=== PATIENT | male | born 1935 | race Caucasian/White ===

== ENCOUNTER → 2017-05-31 14:41 | Outpatient (CLI) | payer MEDICARE, SELFPAY ==
[2017-05-31 16:19] LABS: Absolute Lymphocyte Count 1.67 X10^3/ul (0.83-4.51); Absolute Neutrophil Count 5.7 X10^3/uL (2.0-7.7); Basophil# 0.05 X10^3/uL; Basophil% 0.6 % (0-1); Eosinophil# 0.16 X10^3/uL; Eosinophils% 1.9 % (0-5); Hematocrit 38.4 % (40-54); Hemoglobin 11.9 g/dl (13.0-16.5); Lymphocyte # 1.67 X10^3/ul (4.0); Lymphocyte % 20.2 % (19-41); Mean Corpuscular Hgb 29.6 pg (27.0-32.0); Mean Corpuscular Volume 95.5 fL (80-94); Mean Platelet Vol. 9.3 fl (6.2-12.0); Monocyte% 8.5 % (0-10); Neutrophil # 5.69 X10^3/uL (2.7-7.7); Neutrophil % 68.7 % (47-70); Platelet Count 222 K/mm3 (150-450); RBC Distribution Width CV 14.6 % (11.6-14.6); RBC Distribution Width SD 48.4 fl (35.1-43.9); Red Blood Count 4.02 M/mm3 (4.6-6.2); White Blood Count 8.3 K/mm3 (4.4-11.0)
[2017-05-31 16:23] LABS: POSITIVE COUNT NO; POSITIVE DIFFERENTIAL NO; POSITIVE MORPHOLOGY NO
[2017-05-31 16:38] LABS: ALB/GLOB Ratio 1.2 RATIO (0.9-2.4); AST(SGOT) 19 U/L (15-37); Alanine Aminotransfer ALT/SGPT 13 U/L (16-61); Alkaline Phosphatase 56 U/L (45-117); Anion Gap 11 (5-15); BUN 17 mg/dL (7-18); BUN/Creat Ratio 20.2 RATIO (10-20); Calcium,Total 9.1 mg/dL (8.5-10.1); Chloride 106 mmol/L (98-107); Creatinine, Serum 0.84 mg/dL (0.70-1.30); EST Glomerular Filtration Rate 93 mL/min (>60); Est Glom Filt Rate - Afr Amer 113 mL/min (>60); Globulin 3.3 g/dL (2.2-4.2); Glucose 133 mg/dL (74-106); Potassium 4.6 mmol/L (3.5-5.1); Protein, Total 7.3 g/dL (6.4-8.2); Sodium Level 144 mmol/L (136-145)
== END ==
PROVIDERS: Family Provider Family Medicine Geriatric Medicine; PCP Family Medicine Geriatric Medicine; Visit Provider Family Medicine Geriatric Medicine
DX: R25.9 Unspecified abnormal involuntary movements (principal)
CPT/HCPCS: 36415; 80053; 85025

== ENCOUNTER → 2017-06-02 06:29 | Outpatient (CLI) | payer MEDICARE, SELFPAY ==
--- NOTE | 2017-06-02 06:36 | MRI_ITS ---
STUDY: MRI BRAIN WITHOUT CONTRAST REASON FOR EXAM: Male, 81 years old. dementia,gait difficulty, weakness, shaking. TECHNIQUE: Standardized multiplanar fat and water weighted pulse sequences were obtained. COMPARISON: June 27, 2015 FINDINGS: There is mild cerebral atrophy with widening of the extra-axial spaces and ventricular dilatation. There are a limited number of small white matter hyperintensities, distributed throughout the deep white matter tracts of the cerebral hemispheres, consistent with mild chronic white matter ischemic changes. Normal bilateral basal ganglia. Normal thalami. There is no extra-axial fluid accumulation. Normal flow voids within the major intracranial circulation suggesting patency by spin echo criteria. Normal sella turcica, pituitary gland, infundibular stalk, optic chiasm and hypothalamus. Normal tectal plate and pineal gland. Normal midbrain, jesenia and medulla. Normal cerebellum. Normal basal cisterns. Normal bilateral temporal bones. Normal bilateral internal auditory canals. MRI/Brain without Contrast IMPRESSION: No acute intracranial abnormality. Electronically Signed: Kleber Rico MD at 8:04 EDT Tel , Service support ,
== END ==
PROVIDERS: Family Provider Family Medicine Geriatric Medicine; PCP Family Medicine Geriatric Medicine; Visit Provider Family Medicine Geriatric Medicine
DX: F01.50 Vascular dementia, unspecified severity, without behavioral disturbance, psychotic disturbance, mood disturbance, and anxiety (principal); R26.9 Unspecified abnormalities of gait and mobility
CPT/HCPCS: 70551

== ENCOUNTER → 2017-08-12 13:41 | Outpatient (CLI) | payer MEDICARE, SELFPAY ==
--- NOTE | 2017-08-12 13:43 | CT_ITS ---
STUDY: CT ABDOMEN AND PELVIS WITHOUT CONTRAST REASON FOR EXAM: Male, 82 years old. Hematuria. RADIATION DOSAGE (If Supplied By Facility): CTDIvol = ( 7.30 ) mGy, DLP = ( 360.99 ) mGycm TECHNIQUE: Transaxial images were obtained from the dome of the diaphragm to the symphysis pubis without oral contrast, and without intravenous contrast. Sagittal and coronal images were reconstructed. Individualized dose optimization techniques were used for this CT. COMPARISON: None. FINDINGS: The visualized lung bases are unremarkable. The visualized portions of the heart are within normal limits. Normal liver. The portal vein diameter is 1.5 mm. Normal gallbladder and extrahepatic biliary system. The diameter of the common bile duct is 5 mm. Normal spleen. There is atrophy of the pancreas, most prominent in the head and neck of the pancreas. There is a 1.7 x 1.1 x 2.15 cm soft tissue fullness in the central left adrenal gland, and vaguely nodular 9 mm fullness of the central right adrenal gland. Normal right kidney. Normal left kidney. No hydronephrosis. There is a small hiatal hernia. Normal small intestine. There are multiple colonic diverticula consistent with diverticulosis. The appendix is visualized and appears normal. There is diffuse atherosclerotic calcification of the abdominal aorta and iliofemoral arteries, without a demonstrated aneurysm. Normal inferior vena cava. Normal retroperitoneum. There is asymmetric thickening of the urinary bladder wall. There are 2 lobulated coarse calcifications in the posterior bladder wall, on the right measuring 2.1 cm diameter, and measuring up to 2.6 cm to the left. There is a 1.95 x 1.5 x 2 cm anterior bladder wall diverticulum, and a 2.2 x 1.7 x 2.4 cm diverticulum along the posterior right bladder wall. The prostate gland is 4.5 x 3.8 x 3.15 cm (R28 cc). There is a right-sided inguinal hernia containing adipose tissue. There are degenerative changes of the visualized lumbar spine, with disc height narrowing and endplate osteophyte formation most prominent at L4-5. Mild degenerative arthrosis of the bilateral sacroiliac joints. There is lobulated 1.9 cm diameter lucency in the subarticular medial right ilium, suggesting degenerative change. Patchy osteopenia noted in the sacrum CT/Abdomen/Pelvis without Cont IMPRESSION: 1. Asymmetric mural thickening of the urinary bladder with anterior and right posterior bladder wall diverticula, as well as a pair of lobulated 2 cm coarse calcifications in the posterior bladder wall. This may be the sequelae of chronic cystitis or some degree of chronic bladder outlet obstruction, but other pathology, including neoplasm is not excluded. 2. The prostate gland is only mildly enlarged. 3. No nephrolithiasis or hydronephrosis. 4. Soft tissue fullness of the central adrenal glands, larger on the left, which could relate to hypertrophy or bilateral adrenal masses, such as adenomata. Further characterization with MRI may be useful. 5. Small hiatal hernia. 6. Colonic diverticulosis without acute diverticulitis. No sign of bowel obstruction. The appendix is normal. 7. Calcific atherosclerotic plaquing of the abdominal aorta, proximal iliac arteries, and common femoral arteries. The aortic calcification, by itself, portends a moderate risk for future cardiovascular event, Abdominal Aortic Calcific Deposits Are an Important Predictor of Vascular Morbidity and Mortality; Shemar Leon, et al. Circulation, 2001;103:5756-3725. 8. Fat-containing right inguinal hernia. 9. Degenerative changes of the spine and pelvis, as described. Electronically Signed: Juventino Kenny MD at 17:02 EDT , Service support ,
== END ==
PROVIDERS: Family Provider Family Medicine Geriatric Medicine; PCP Family Medicine Geriatric Medicine; Visit Provider Urology
DX: R31.9 Hematuria, unspecified (principal)
CPT/HCPCS: 74176

== ENCOUNTER → 2017-09-08 06:07 | Outpatient (CLI) | payer MEDICARE, SELFPAY | PROVIDERS: Family Provider Family Medicine Geriatric Medicine; PCP Family Medicine Geriatric Medicine; Visit Provider Urology | DX: Z00.00 Encounter for general adult medical examination without abnormal findings (principal) ==

== ENCOUNTER 2017-09-09 05:19 | Day surgery (SDC) | payer MEDICARE, SELFPAY ==
[2017-09-02 10:04] VITALS: BP 178/84; PULSE 56; RESP 17; TEMP 36.8; O2SAT 96; BMI 23.3
--- NOTE | 2017-09-02 10:34 | SDCEKG_ITS ---
Test Reason : Blood Pressure : / mmHG Vent. Rate : 055 BPM Atrial Rate : 055 BPM P-R Int : 174 ms QRS Dur : 096 ms QT Int : 434 ms P-R-T Axes : 017 002 013 degrees QTc Int : 415 ms Sinus bradycardia Inferior infarct , age undetermined Abnormal ECG Confirmed by ISIDORO MARSHALL ([id number]), continuity editor RITA FREEMAN ([id number]) on 09/06/2017 1:44:26 PM Referred By: Adalberto Guerrero Confirmed By:ISIDORO MARSHALL
[2017-09-02 11:16] LABS: Hematocrit 37.7 % (40-54); Hemoglobin 12.6 g/dl (13.0-16.5); Mean Corp Hgb Conc 33.4 g/gl (32-36); Mean Corpuscular Volume 92.9 fL (80-94); Mean Platelet Vol. 9.2 fl (6.2-12.0); Platelet Count 177 K/mm3 (150-450); RBC Distribution Width CV 13.3 % (11.6-14.6); RBC Distribution Width SD 44.2 fl (35.1-43.9); Red Blood Count 4.06 M/mm3 (4.6-6.2); White Blood Count 6.3 K/mm3 (4.4-11.0)
[2017-09-02 11:19] LABS: Scan Indicated on CBC? Y/N NO
[2017-09-02 11:26] LABS: International Normalized Ratio 1.1; Prothrombin Time (Protime)PT. 14.5 SECONDS (11.7-14.9)
[2017-09-02 11:27] LABS: Partial Thromboplast Time 28.7 Seconds (24.1-36.2)
[2017-09-02 11:40] LABS: AST(SGOT) 15 U/L (15-37); Alanine Aminotransfer ALT/SGPT 9 U/L (16-61); Albumin, Serum 3.6 g/dL (3.2-5.0); Alkaline Phosphatase 54 U/L (45-117); Anion Gap 5 (5-15); BUN 16 mg/dL (7-18); BUN/Creat Ratio 14.8 RATIO (10-20); Bilirubin, Direct 0.17 mg/dL (0.00-0.30); Calcium,Total 9.3 mg/dL (8.5-10.1); Chloride 103 mmol/L (98-107); Creatinine, Serum 1.08 mg/dL (0.70-1.30); EST Glomerular Filtration Rate 70 mL/min (>60); Est Glom Filt Rate - Afr Amer 84 mL/min (>60); Estimated Creatinine Clearance 48.41 ml/min; Globulin 3.3 g/dL (2.2-4.2); Glucose 258 mg/dL (74-106); Potassium 4.7 mmol/L (3.5-5.1); Protein, Total 6.9 g/dL (6.4-8.2); Sodium Level 141 mmol/L (136-145)
[2017-09-09] VITALS (12 sets, daily range): BP systolic 121–182; BP diastolic 66–98; PULSE 56–78; RESP 16; TEMP 36.3–36.8; O2SAT 93–99; BMI 23.3
--- NOTE | 2017-09-09 | IMM_PTH ---
PATIENT: MERON AUSTIN LOC: [facility] U#:[id number] AGE/SX: 82/M ROOM: RE09/09/[address]: Dr. Adalberto Guerrero MD : 1935 BED: DIS: 09/10/2017 SPEC #: [id number] RECD: 09/12/17 13:02 STATUS: KIEL REKendall #: [id number] JEFFERY: 09/09/17 00:[address]: Adalberto Guerrero DEPT: IMMUNOHISTOCHEMISTRY RECD BY: Lucille Treviño ENTERED: 09/12/17 13:03 SP TYPE: IMMUNO OTHR DR: Dr. Gunner Scruggs MD Tissues: Prostate, NOS Procedures: 34BE12 (add) P40 (add) 34BE12 (initial) PHYSICIAN & INSTITUTION [place] [id number] SPECIMEN INFORMATION: Tissue Source: Prostate, TUR Clinical Info: BPH, gross hematuria, bladder stone Specimen Number: [id number] block 2 & 3 CPT code: 29454, 40412 x3 METHODOLOGY: Deparaffinized sections of prefer/formalin-fixed tissue or PAP/DQ stained slides are incubated with monoclonal/polyclonal antibodies/oligonucleotide probes. Localization is made via biotin free immunoperoxidase method. Appropriate controls are performed and reacted as expected. Results on target cell population are indicated in the following table: RESULTS: ANTIBODY / CLONE RESULT Block 2 P40 (BC28) negative 34BE12 (34BE12) negative Block 3 P40 (BC28) negative 34BE12 (34BE12) negative These tests were developed and their performance characteristics determined by [facility]. They may not have been cleared or approved by the U.S. Food and Drug Administration. The FDA has determined that such clearance or approval is not necessary. INTERPRETATION: Prostate, transurethral resection: Adenocarcinoma. JOY:bridget 09/13/17 Case has been reviewed in consultation with Dr. Sanchez who concurs with the above diagnosis. IDC:[email or web address]
[2017-09-09 06:16] LABS: Bedside Glucose 202 mg/dL (70-110)
[2017-09-09] MEDS: Lubricating Jelly 60 GM Tube 30 GM TOPICAL (06:54)
[2017-09-09] MEDS: Cefazolin 2 GM in 0.9% Normal Saline 100 ML IV (07:30)
--- NOTE | 2017-09-09 07:30 | PROS_PTH ---
PATIENT: MERON AUSTIN LOC: [facility] [place] U#:[id number] AGE/SX: 82/M ROOM: RE09/09/[address]: Dr. Adalberto Guerrero MD : 1935 BED: DIS: 09/10/2017 SPEC #: [id number] RECD: 09/09/17 12:42 STATUS: KIEL REKendall #: [id number] JEFFERY: 09/09/17 07:[address]: Adalberto Guerrero DEPT: SURGICAL PATHOLOGY RECD BY: Diane Palumbo ENTERED: 09/09/17 13:13 SP TYPE: TURP OTHR DR: Dr. Gunner Scruggs MD Tissues: Prostate, NOS Procedures: Surgery Specimen Level IV HEADER OPERATION: Cysto, TUR, prostate, Olympus, cysto litholapaxy laser PRE-OP DIAGNOSIS: Benign prostatic hypertrophy, gross hematuria, bladder stone TISSUE SUBMITTED: Prostate tissue MICROSCOPIC DIAGNOSIS Prostate tissue, TUR: Focal adenocarcinoma. See cancer summary below. PROSTATE CANCER (TUR) SUMMARY: Procedure ? transurethral prostatic resection Specimen weight ? 21.4 gm (including multiple fragments of stones) Histologic type ? adenocarcinoma (acinar, not otherwise specified) Histologic grade (Silver Pattern): Primary (predominant) pattern ? grade 3 Secondary (worst remaining) pattern ? grade 3 Total Silver score - 6 Tumor Quantitation (TUR specimen): Proportion (%) of prostatic tissue involved by tumor - <1% Tumor incidental histologic findings in no more than 5% of tissue resected with Silver score 2 to 6 (cT1a). Number of positive chips - 4 Total number of chips - ~180 Periprostatic fat invasion ? not applicable Seminal vesicle invasion - not applicable Lymph-Vascular invasion - not identified Perineural invasion - not identified Additional pathologic findings ? benign prostatic hyperplasia, glandular and stromal type. - Focal acute and chronic inflammation and basal cell hyperplasia. The above summary is in compliance with [employer] [place] Pathology (CAP) Cancer Protocols Checklist and [place] Joint Committee on Cancer (AJCC), Staging Manual, 8th Ed. SJ:bridget 09/12/17 COMMENT Immunohistochemistry ([id number]) supports the above diagnosis. Case has been reviewed in consultation with Dr. Sanchez who concurs with the above diagnosis. IDC:AM MICROSCOPIC DESCRIPTION Slides are reviewed. GROSS DESCRIPTION Received is one container labeled with the patient's name and designated prostate tissue. The specimen consists of multiple irregular fragments of pink-medrano, rubbery, soft tissue that in aggregate weigh 21.4 gm and measure in aggregate 6 x 6 x 2 cm. Multiple fragments of stones are also noted measuring in aggregate 4 x 3 x 1.5 cm. [facility] Psych[facility] soft tissue is submitted in 12 cassettes. The stones are for gross identification. / JOY:bridget 09/09/17 The rest of the soft tissue is submitted in four more cassettes, 12-16. / JOY:bridget 09/12/17 TC:0 CPT: 33654
[2017-09-09 10:46] LABS: Bedside Glucose 166 mg/dL (70-110)
--- NOTE | 2017-09-09 11:39 | PCA ---
pt provided copy of Power of Employment Consultant after surgery. Placed in pt chart.
[2017-09-09] MEDS: 0.9% Normal Saline 1,000 ML 75 ML IV ×2 (11:56→23:10)
--- NOTE | 2017-09-09 12:51 | PCM.OPRPT ---
Report of Operation Date of Procedure: 09/09/17 Pre-Operative Diagnosis: Large multiple bladder stones and BPH with obstruction Post-Operative Diagnosis: Cystoscopy, cystolitholapaxy and laser of large bladder stones, BPH with obstruction Surgery/Procedure Performed:: Cystoscopy and laser lithotripsy and removal of large bladder stones, transurethral resection of the prostate Description of Surgical Findings:: 82-year-old male was taken back to the operating room at the smooth induction of general anesthesia, the penis and testicles are prepped and draped in usual sterile fashion, went into the bladder with a 26 Martiniquais continuous flow resectoscope, and [id number] I used a laser and lasered very large stones in the bladder tiny pieces and then evacuated all these pieces out with a manual Ellik evacuator once all the stones were removed which took quite a long time since was quite large stone burden took about an hour and a half to laser the stones then I switched over to the resectoscope and using the bipolar resectoscope I proceeded with a transurethral resection of the prostate he had an obstructive prostate with bilateral hypertrophy took down the bladder neck and then took down the right lobe of the prostate left lobe the prostate and then carefully resected the apical tissue near the sphincter and after resecting the prostate which took about another 45 minutes an hour because large prostate and he had a nice wide open channel from the verumontanum all the way into the bladder sphincter was intact got hemostasis and all the chips removed on the bladder and obtain hemostasis but a 22 Martiniquais catheter in the bladder continues bladder irrigation the patient anesthetic was reversed taken back to PACU in good condition. Type of Anesthesia:: General Drains: [address] - Admit VTE Documentation VTE Present on Admission: No VTE Mechan Device Prophylaxis: SCD's VTE Pharm Prophylaxis ordered?: No Reason prophylaxis not ordered:: Treatment Not Indicated
[2017-09-09] MEDS: Ciprofloxacin 500 MG Tablet PO ×2 (13:49→21:08)
[2017-09-09] MEDS: Pantoprazole Sodium 40 MG Tablet PO (13:50)
[2017-09-09] MEDS: PARoxetine 10 MG Tablet PO ×2 (13:50→21:08)
[2017-09-09] MEDS: Metoprolol(XL)Succ 50 MG Tablet PO (17:49)
[2017-09-09] MEDS: Carbidopa/Levodopa 25/100 Tablet PO ×2 (17:49→21:08)
[2017-09-09] MEDS: Docusate Sodium 100 MG Capsule PO (21:08)
[2017-09-09] MEDS: CARBIDOPA/LEVODOPA CR 50/200 Tablet PO (21:08)
[2017-09-09] MEDS: Atorvastatin Calcium 40 MG Tablet PO (21:08)
[2017-09-09] MEDS: Donepezil HCl 5 MG Tablet PO (21:08)
[2017-09-10 03:30] VITALS: BP 135/74; PULSE 61; RESP 16; TEMP 36.5; O2SAT 96
[2017-09-10] MEDS: Carbidopa/Levodopa 25/100 Tablet PO (05:15)
[2017-09-10 08:12] VITALS: BP 158/87; PULSE 65; RESP 16; TEMP 36.6; O2SAT 95
--- NOTE | 2017-09-10 08:28 | DCINST_ITS ---
Discharge Diet: Light diet - advance as tolerated Discharge Activity: Return to Normal Activity Instructions: Transurethral Resection of the Prostate (TURP): Home Recovery Allergies/Adverse Reactions: Allergies azithromycin Allergy (Verified 09/02/17 09:56) Swelling Medications to take at Discharge aspirin 81 mg tablet,delayed release 81 mg PO QDAY tab 05/02/17 carbidopa 25 mg-levodopa 100 mg tablet 1 tab PO TID 05/02/17 finasteride 5 mg tablet 5 mg PO QDAY 05/02/17 metoprolol succinate ER 50 mg tablet,extended release 24 hr 50 mg PO DINNER tab 05/02/17 cyanocobalamin (vit B-12) 1,000 mcg tablet 2,000 mcg PO QDAY tab 05/05/17 donepezil 5 mg tablet 5 mg PO QDAY 05/05/17 fluticasone 50 mcg/actuation nasal spray,suspension 1 spray INTRANASAL QDAY PRN 05/05/17 vit C 250 mg-E 200 unit-zinc 40 mg-copper 1 yi-pjjuxw-ekrwyh capsule 1 tab PO BID 05/05/17 Atorvastatin Calcium [Lipitor] 40 mg PO QHS 09/02/17 Carbidopa/Levodopa [Sinemet Cr 50-200 Tablet] 1 each PO QHS 09/02/17 Paroxetine [Paxil] 10 mg PO QHS 09/02/17 Ciprofloxacin [Cipro] 500 mg PO BID #14 tab 09/10/17 The following prescriptions were given: Ciprofloxacin [Cipro] 500 mg PO BID #14 tab Primary Care Physician: Gunner Scruggs Chi, MD [Primary Care Provider] - Test Results: Test results from this visit will be discussed in further detail at your follow- up appointment, if applicable. Please Follow Up With: Adalberto Guerrero MD When: in 2 weeks, please call to make an appointment.
[2017-09-10] MEDS: Docusate Sodium 100 MG Capsule PO (09:26)
[2017-09-10] MEDS: Cyanocobalamin 500 MCG Tablet 2000 MCG PO (09:26)
[2017-09-10] MEDS: Pantoprazole Sodium 40 MG Tablet PO (09:26)
[2017-09-10] MEDS: Ciprofloxacin 500 MG Tablet PO (09:26)
== END 2017-09-10 11:14 | disposition home or self-care (01) ==
LOC: SDC 05:19 → AC 05:20 → MS3 08:09
PROVIDERS: Anesthesiology; Family Provider Family Medicine Geriatric Medicine; PCP Family Medicine Geriatric Medicine; Visit Provider Urology
PROC: (CPT 52318; principal; 2017-09-09 07:20)
PROC: (CPT 52318; 2017-09-09 07:20)
DX: C61 Malignant neoplasm of prostate (principal); N40.1 Benign prostatic hyperplasia with lower urinary tract symptoms; N21.0 Calculus in bladder; N13.8 Other obstructive and reflux uropathy; R35.0 Frequency of micturition; R39.12 Poor urinary stream; G20 Parkinson's disease; E11.9 Type 2 diabetes mellitus without complications; I10 Essential (primary) hypertension; E78.00 Pure hypercholesterolemia, unspecified; G47.30 Sleep apnea, unspecified; F41.9 Anxiety disorder, unspecified; Z79.84 Long term (current) use of oral hypoglycemic drugs; Z79.82 Long term (current) use of aspirin; Z79.899 Other long term (current) drug therapy; Z85.810 Personal history of malignant neoplasm of tongue; Z87.891 Personal history of nicotine dependence; Z86.73 Personal history of transient ischemic attack (TIA), and cerebral infarction without residual deficits; Z95.1 Presence of aortocoronary bypass graft
CPT/HCPCS: 52318; 52601; 80048; 80076; 82962; 85027; 85610; 85730; 88305; 88341; 88342; 93005; J7030; J7120; J2405

== ENCOUNTER → 2017-10-12 11:11 | Outpatient (CLI) | payer MEDICARE, SELFPAY | PROVIDERS: Family Provider Family Medicine Geriatric Medicine; PCP Family Medicine Geriatric Medicine; Visit Provider Anesthesiology Pain Medicine | DX: M54.9 Dorsalgia, unspecified (principal) | CPT/HCPCS: 72100 ==

== ENCOUNTER → 2017-12-08 14:02 | Outpatient (CLI) | payer MEDICARE, SELFPAY ==
[2017-12-08 14:50] LABS: Absolute Lymphocyte Count 2.01 X10^3/ul (0.83-4.51); Basophil# 0.03 X10^3/uL; Basophil% 0.4 % (0-1); Eosinophils% 2.6 % (0-5); Hematocrit 41.6 % (40-54); Hemoglobin 13.8 g/dl (13.0-16.5); Lymphocyte # 2.01 X10^3/ul (4.0); Lymphocyte % 25.9 % (19-41); Mean Corp Hgb Conc 33.2 g/gl (32-36); Mean Corpuscular Hgb 31.6 pg (27.0-32.0); Mean Corpuscular Volume 95.2 fL (80-94); Mean Platelet Vol. 9.8 fl (6.2-12.0); Monocyte# 0.52 X10^3/uL; Monocyte% 6.7 % (0-10); Neutrophil # 4.97 X10^3/uL (2.7-7.7); Neutrophil % 64.1 % (47-70); POSITIVE COUNT NO; POSITIVE DIFFERENTIAL NO; POSITIVE MORPHOLOGY NO; Platelet Count 170 K/mm3 (150-450); RBC Distribution Width CV 12.9 % (11.6-14.6); RBC Distribution Width SD 43.6 fl (35.1-43.9); Red Blood Count 4.37 M/mm3 (4.6-6.2); White Blood Count 7.8 K/mm3 (4.4-11.0)
[2017-12-08 15:08] LABS: ALB/GLOB Ratio 1.1 RATIO (0.9-2.4); AST(SGOT) 11 U/L (15-37); Alanine Aminotransfer ALT/SGPT 14 U/L (16-61); Albumin, Serum 3.8 g/dL (3.2-5.0); Alkaline Phosphatase 59 U/L (45-117); Anion Gap 9 (5-15); BUN 15 mg/dL (7-18); BUN/Creat Ratio 12.7 RATIO (10-20); Calcium,Total 9.3 mg/dL (8.5-10.1); Chloride 99 mmol/L (98-107); Creatinine, Serum 1.18 mg/dL (0.70-1.30); EST Glomerular Filtration Rate 63 mL/min (>60); Est Glom Filt Rate - Afr Amer 76 mL/min (>60); Globulin 3.4 g/dL (2.2-4.2); Glucose 373 mg/dL (74-106); Potassium 4.6 mmol/L (3.5-5.1); Protein, Total 7.2 g/dL (6.4-8.2); Sodium Level 138 mmol/L (136-145); Thyroid Stim Hormone (TSH) 0.96 uIU/mL (0.358-3.74)
== END ==
LOC: POLAB3 14:03 → RAD 14:26 → POLAB3 14:32
PROVIDERS: Family Provider Family Medicine Geriatric Medicine; PCP Family Medicine Geriatric Medicine; Referring Provider Family Medicine Geriatric Medicine; Visit Provider Family Medicine Geriatric Medicine
DX: I10 Essential (primary) hypertension (principal); E86.0 Dehydration; G93.9 Disorder of brain, unspecified
CPT/HCPCS: 36415; 80053; 84443; 85025

== ENCOUNTER → 2017-12-08 14:28 | Outpatient (CLI) | payer MEDICARE, SELFPAY ==
--- NOTE | 2017-12-08 14:35 | CT_ITS ---
STUDY: CT BRAIN WITHOUT CONTRAST REASON FOR EXAM: Male, 82 years old. Dizziness. Encephalopathy. RADIATION DOSAGE (If Supplied By Facility): CTDIvol = ( 44.99 ) mGy, DLP = ( 762.36 ) mGycm TECHNIQUE: Transaxial CT imaging of the brain was performed without administration of intravenous contrast material. Individualized dose optimization techniques were used for this CT. COMPARISON: None. FINDINGS: Normal soft tissue structures. Normal calvarium. There is moderate cerebral atrophy with widening of the extra-axial spaces and ventricular dilatation. Normal white matter tracts of the cerebral hemispheres. Prominent CSF spaces. There are small punctate calcifications of the basal ganglia which are seen in the aging brain as a normal variant. Normal brainstem. There is mild cerebellar atrophy. Empty sella. There is no intracranial hemorrhage. There are no findings of an acute ischemic infarction. Atherosclerotic calcification of the vertebral arteries and cavernous portions of the internal carotid arteries bilaterally. Normal visualized paranasal sinuses. CT/Brain/Head without Contrast IMPRESSION: Chronic involutional changes of the brain. Empty sella. Electronically Signed: Olvin Willis MD at 15:06 EDT Tel [phone], Service support ,
== END ==
PROVIDERS: Family Provider Family Medicine Geriatric Medicine; PCP Family Medicine Geriatric Medicine; Referring Provider Family Medicine Geriatric Medicine; Visit Provider Family Medicine Geriatric Medicine
DX: G93.40 Encephalopathy, unspecified (principal); E86.0 Dehydration; I10 Essential (primary) hypertension
CPT/HCPCS: 36415; 70450; 80053; 84443; 85025

== ENCOUNTER → 2017-12-26 09:20 | Outpatient (CLI) | payer MEDICARE, SELFPAY ==
[2017-12-26 10:25] LABS: PSA,Total- Diagnostic 0.43 ng/mL (0.0-4.0)
== END ==
PROVIDERS: Family Provider Family Medicine Geriatric Medicine; PCP Family Medicine Geriatric Medicine; Referring Provider Urology; Visit Provider Urology
DX: C61 Malignant neoplasm of prostate (principal)
CPT/HCPCS: 36415; 84153

== ENCOUNTER → 2018-01-09 11:52 | Outpatient (CLI) | payer MEDICARE, SELFPAY ==
[2018-01-09 12:49] LABS: Absolute Lymphocyte Count 1.96 X10^3/ul (0.83-4.51); Absolute Neutrophil Count 5.8 X10^3/uL (2.0-7.7); Basophil# 0.05 X10^3/uL; Basophil% 0.6 % (0-1); Eosinophil# 0.32 X10^3/uL; Eosinophils% 3.6 % (0-5); Hematocrit 41.3 % (40-54); Hemoglobin 13.3 g/dl (13.0-16.5); Lymphocyte # 1.96 X10^3/ul (4.0); Lymphocyte % 22.1 % (19-41); Mean Corp Hgb Conc 32.2 g/gl (32-36); Mean Corpuscular Hgb 31.1 pg (27.0-32.0); Mean Corpuscular Volume 96.7 fL (80-94); Monocyte# 0.74 X10^3/uL; Monocyte% 8.3 % (0-10); Neutrophil % 65.3 % (47-70); Platelet Count 187 K/mm3 (150-450); RBC Distribution Width CV 13.5 % (11.6-14.6); RBC Distribution Width SD 47.4 fl (35.1-43.9); Red Blood Count 4.27 M/mm3 (4.6-6.2); White Blood Count 8.9 K/mm3 (4.4-11.0)
[2018-01-09 12:56] LABS: POSITIVE COUNT NO; POSITIVE DIFFERENTIAL NO; POSITIVE MORPHOLOGY NO
[2018-01-09 13:15] LABS: Vitamin D,25 Hydroxy 26.8 ng/mL (29.95-100.01)
[2018-01-09 13:28] LABS: ALB/GLOB Ratio 1.1 RATIO (0.9-2.4); AST(SGOT) 13 U/L (15-37); Alanine Aminotransfer ALT/SGPT 15 U/L (16-61); Albumin, Serum 3.6 g/dL (3.2-5.0); Alkaline Phosphatase 55 U/L (45-117); Anion Gap 13 (5-15); BUN 19 mg/dL (7-18); BUN/Creat Ratio 16.4 RATIO (10-20); Calcium,Total 9.1 mg/dL (8.5-10.1); Chloride 102 mmol/L (98-107); Cholesterol 113 mg/dL (200); Creatinine, Serum 1.16 mg/dL (0.70-1.30); EST Glomerular Filtration Rate 64 mL/min (>60); Est Glom Filt Rate - Afr Amer 78 mL/min (>60); Globulin 3.3 g/dL (2.2-4.2); Glucose 212 mg/dL (74-106); High Density Lipoprotein 34 mg/dL; Potassium 4.3 mmol/L (3.5-5.1); Protein, Total 6.9 g/dL (6.4-8.2); Sodium Level 141 mmol/L (136-145); Thyroid Stim Hormone (TSH) 2.03 uIU/mL (0.358-3.74); Triglycerides 174 mg/dL; Very Low Density Lipoprotein 35 mg/dL (5-40)
== END ==
PROVIDERS: Family Provider Family Medicine Geriatric Medicine; PCP Family Medicine Geriatric Medicine; Visit Provider Family Medicine Geriatric Medicine
DX: E11.9 Type 2 diabetes mellitus without complications (principal); I10 Essential (primary) hypertension; E78.49 Other hyperlipidemia; E55.9 Vitamin D deficiency, unspecified
CPT/HCPCS: 36415; 80053; 80061; 82306; 84443; 85025

== ENCOUNTER → 2018-07-04 12:48 | Outpatient (CLI) | payer MEDICARE, SELFPAY ==
[2018-05-02 13:39] VITALS: BMI 23.3
[2018-07-04 13:19] LABS: Absolute Lymphocyte Count 1.92 X10^3/ul (0.83-4.51); Absolute Neutrophil Count 3.3 X10^3/uL (2.0-7.7); Basophil# 0.03 X10^3/uL; Basophil% 0.5 % (0-1); Eosinophil# 0.28 X10^3/uL; Eosinophils% 4.6 % (0-5); Hematocrit 39.7 % (40-54); Lymphocyte # 1.92 X10^3/ul (4.0); Lymphocyte % 31.7 % (19-41); Mean Corp Hgb Conc 32.7 g/gl (32-36); Mean Corpuscular Hgb 31.3 pg (27.0-32.0); Mean Corpuscular Volume 95.4 fL (80-94); Mean Platelet Vol. 9.7 fl (6.2-12.0); Monocyte# 0.54 X10^3/uL; Monocyte% 8.9 % (0-10); Neutrophil # 3.26 X10^3/uL (2.7-7.7); Platelet Count 177 K/mm3 (150-450); RBC Distribution Width CV 12.8 % (11.6-14.6); RBC Distribution Width SD 43.2 fl (35.1-43.9); Red Blood Count 4.16 M/mm3 (4.6-6.2); White Blood Count 6.1 K/mm3 (4.4-11.0)
[2018-07-04 13:20] LABS: POSITIVE COUNT NO; POSITIVE DIFFERENTIAL NO; POSITIVE MORPHOLOGY NO
[2018-07-04 13:49] LABS: Vitamin D,25 Hydroxy 40.3 ng/mL (29.95-100.01)
[2018-07-04 14:02] LABS: ALB/GLOB Ratio 1.2 RATIO (0.9-2.4); AST(SGOT) 11 U/L (15-37); Alanine Aminotransfer ALT/SGPT 12 U/L (16-61); Albumin, Serum 3.7 g/dL (3.2-5.0); Alkaline Phosphatase 46 U/L (45-117); Anion Gap 9 (5-15); BUN 13 mg/dL (7-18); BUN/Creat Ratio 12.7 RATIO (10-20); Calcium,Total 8.8 mg/dL (8.5-10.1); Chloride 105 mmol/L (98-107); Cholesterol 115 mg/dL (200); Creatinine, Serum 1.02 mg/dL (0.70-1.30); EST Glomerular Filtration Rate 74 mL/min (>60); Est Glom Filt Rate - Afr Amer 90 mL/min (>60); Globulin 3.2 g/dL (2.2-4.2); Glucose 186 mg/dL (74-106); High Density Lipoprotein 46 mg/dL; Potassium 4.3 mmol/L (3.5-5.1); Protein, Total 6.9 g/dL (6.4-8.2); Sodium Level 141 mmol/L (136-145); Thyroid Stim Hormone (TSH) 1.01 uIU/mL (0.358-3.74); Triglycerides 111 mg/dL; Very Low Density Lipoprotein 22 mg/dL (5-40)
== END ==
PROVIDERS: Family Provider Family Medicine Geriatric Medicine; PCP Family Medicine Geriatric Medicine; Visit Provider Family Medicine Geriatric Medicine
DX: E11.9 Type 2 diabetes mellitus without complications (principal); E55.9 Vitamin D deficiency, unspecified; E78.5 Hyperlipidemia, unspecified; I10 Essential (primary) hypertension
CPT/HCPCS: 36415; 80053; 80061; 82306; 84443; 85025

== ENCOUNTER → 2019-01-16 11:03 | Outpatient (CLI) | payer MEDICARE, SELFPAY ==
[2018-05-02 13:39] VITALS: BMI 23.3
[2019-01-16 12:25] LABS: Absolute Lymphocyte Count 1.96 X10^3/uL (0.83-4.51); Absolute Neutrophil Count 3.5 X10^3/uL (2.0-7.7); Basophil# 0.07 X10^3/uL; Basophil% 1.1 % (0-1); Eosinophil# 0.34 X10^3/uL; Eosinophils% 5.2 % (0-5); Hematocrit 41.9 % (40-54); Hemoglobin 13.5 g/dL (13.0-16.5); Lymphocyte # 1.96 X10^3/ul (4.0); Lymphocyte % 30.2 % (19-41); Mean Corp Hgb Conc 32.2 g/dL (32-36); Mean Corpuscular Hgb 31.5 pg (27.0-32.0); Mean Corpuscular Volume 97.7 fL (80-94); Mean Platelet Vol. 9.4 fl (6.2-12.0); Monocyte# 0.64 X10^3/uL; Monocyte% 9.9 % (0-10); NRBC Flagged by Analyzer 0 % (0-5); Neutrophil # 3.47 X10^3/uL (2.7-7.7); Neutrophil % 53.4 % (47-70); Platelet Count 190 K/mm3 (150-450); RBC Distribution Width CV 12.8 % (11.6-14.6); RBC Distribution Width SD 45.3 fl (35.1-43.9); Red Blood Count 4.29 M/mm3 (4.6-6.2); White Blood Count 6.5 K/mm3 (4.4-11.0)
[2019-01-16 12:50] LABS: ALB/GLOB Ratio 1.2 RATIO (0.9-2.4); AST(SGOT) 11 U/L (15-37); Alanine Aminotransfer ALT/SGPT 11 U/L (16-61); Albumin, Serum 3.6 g/dL (3.2-5.0); Alkaline Phosphatase 45 U/L (45-117); Anion Gap 8 (5-15); BUN 16 mg/dL (7-18); BUN/Creat Ratio 15.5 RATIO (10-20); Calcium,Total 8.9 mg/dL (8.5-10.1); Chloride 104 mmol/L (98-107); Cholesterol 203 mg/dL (200); Creatinine, Serum 1.03 mg/dL (0.70-1.30); EST Glomerular Filtration Rate 73 mL/min (>60); Est Glom Filt Rate - Afr Amer 89 mL/min (>60); Globulin 3.1 g/dL (2.2-4.2); Glucose 164 mg/dL (74-106); High Density Lipoprotein 46 mg/dL; Potassium 3.9 mmol/L (3.5-5.1); Protein, Total 6.7 g/dL (6.4-8.2); Sodium Level 140 mmol/L (136-145); Thyroid Stim Hormone (TSH) 1.46 uIU/mL (0.358-3.74); Triglycerides 183 mg/dL; Very Low Density Lipoprotein 37 mg/dL (5-40)
[2019-01-16 14:50] LABS: Vitamin D,25 Hydroxy 38.2 ng/mL (29.95-100.01)
== END ==
PROVIDERS: Family Provider Family Medicine Geriatric Medicine; PCP Family Medicine Geriatric Medicine; Visit Provider Family Medicine Geriatric Medicine
DX: E11.9 Type 2 diabetes mellitus without complications (principal); E55.9 Vitamin D deficiency, unspecified; E78.5 Hyperlipidemia, unspecified; I10 Essential (primary) hypertension
CPT/HCPCS: 36415; 80053; 80061; 82306; 84443; 85025

== ENCOUNTER → 2019-07-11 12:14 | Outpatient (CLI) | payer MEDICARE, SELFPAY ==
[2019-05-03 10:30] VITALS: BMI 22.6
[2019-07-11 12:45] LABS: Absolute Lymphocyte Count 1.62 X10^3/uL (0.83-4.51); Absolute Neutrophil Count 3.9 X10^3/uL (2.0-7.7); Basophil# 0.05 X10^3/uL; Basophil% 0.8 % (0-1); Eosinophil# 0.33 X10^3/uL; Eosinophils% 5.1 % (0-5); Hematocrit 41.3 % (40-54); Hemoglobin 13.3 g/dL (13.0-16.5); Lymphocyte # 1.62 X10^3/ul (4.0); Lymphocyte % 25.3 % (19-41); Mean Corp Hgb Conc 32.2 g/dL (32-36); Mean Corpuscular Hgb 31.7 pg (27.0-32.0); Mean Corpuscular Volume 98.6 fL (80-94); Mean Platelet Vol. 9.5 fl (6.2-12.0); Monocyte# 0.46 X10^3/uL; Monocyte% 7.2 % (0-10); NRBC Flagged by Analyzer 0 % (0-5); Neutrophil # 3.93 X10^3/uL (2.7-7.7); Neutrophil % 61.3 % (47-70); Platelet Count 207 K/mm3 (150-450); RBC Distribution Width CV 13.1 % (11.6-14.6); RBC Distribution Width SD 46.5 fl (35.1-43.9); Red Blood Count 4.19 M/mm3 (4.6-6.2); White Blood Count 6.4 K/mm3 (4.4-11.0)
[2019-07-11 13:19] LABS: Vitamin D,25 Hydroxy 30.9 ng/mL
[2019-07-11 13:26] LABS: AST(SGOT) 15 U/L (15-37); Alanine Aminotransfer ALT/SGPT 14 U/L (16-61); Albumin, Serum 3.4 g/dL (3.2-5.0); Alkaline Phosphatase 42 U/L (45-117); Anion Gap 7 (5-15); BUN 16 mg/dL (7-18); BUN/Creat Ratio 17.2 RATIO (10-20); Calcium,Total 9.1 mg/dL (8.5-10.1); Chloride 104 mmol/L (98-107); Cholesterol 178 mg/dL (200); Creatinine, Serum 0.93 mg/dL (0.70-1.30); EST Glomerular Filtration Rate 83 mL/min (>60); Est Glom Filt Rate - Afr Amer 100 mL/min (>60); Globulin 3.4 g/dL (2.2-4.2); Glucose 182 mg/dL (74-106); High Density Lipoprotein 36 mg/dL; Potassium 4.2 mmol/L (3.5-5.1); Protein, Total 6.8 g/dL (6.4-8.2); Sodium Level 140 mmol/L (136-145); Thyroid Stim Hormone (TSH) 1.42 uIU/mL (0.358-3.74); Triglycerides 193 mg/dL; Very Low Density Lipoprotein 39 mg/dL (5-40)
== END ==
PROVIDERS: PCP Family Medicine Geriatric Medicine; Visit Provider Family Medicine Geriatric Medicine
DX: E11.9 Type 2 diabetes mellitus without complications (principal); I10 Essential (primary) hypertension; E55.9 Vitamin D deficiency, unspecified; E78.5 Hyperlipidemia, unspecified
CPT/HCPCS: 36415; 80053; 80061; 82306; 84443; 85025

== ENCOUNTER → 2020-01-22 09:22 | Outpatient (CLI) | payer MEDICARE, SELFPAY ==
[2019-05-03 10:30] VITALS: BMI 22.6
[2020-01-22 12:13] LABS: Absolute Lymphocyte Count 1.77 X10^3/uL (0.83-4.51); Absolute Neutrophil Count 4.3 X10^3/uL (2.0-7.7); Basophil# 0.07 X10^3/uL; Eosinophils% 5.5 % (0-5); Hemoglobin 14.6 g/dL (13.0-16.5); Lymphocyte # 1.77 X10^3/ul (4.0); Lymphocyte % 24.4 % (19-41); Mean Corp Hgb Conc 33.2 g/dL (32-36); Mean Corpuscular Hgb 32.6 pg (27.0-32.0); Mean Corpuscular Volume 98.2 fL (80-94); Mean Platelet Vol. 9.3 fl (6.2-12.0); Monocyte# 0.67 X10^3/uL; Monocyte% 9.3 % (0-10); NRBC Flagged by Analyzer 0 % (0-5); Neutrophil % 59.4 % (47-70); Platelet Count 210 K/mm3 (150-450); RBC Distribution Width CV 12.8 % (11.6-14.6); RBC Distribution Width SD 46.3 fl (35.1-43.9); Red Blood Count 4.48 M/mm3 (4.6-6.2); White Blood Count 7.2 K/mm3 (4.4-11.0)
[2020-01-22 12:48] LABS: Vitamin D,25 Hydroxy 25.5 ng/mL
[2020-01-22 12:54] LABS: ALB/GLOB Ratio 1.1 RATIO (0.9-2.4); AST(SGOT) 17 U/L (15-37); Alanine Aminotransfer ALT/SGPT 14 U/L (16-61); Albumin, Serum 3.9 g/dL (3.2-5.0); Alkaline Phosphatase 46 U/L (45-117); Anion Gap 7 (5-15); BUN 12 mg/dL (7-18); BUN/Creat Ratio 11.1 RATIO (10-20); Calcium,Total 9.6 mg/dL (8.5-10.1); Chloride 101 mmol/L (98-107); Cholesterol 178 mg/dL (200); Creatinine, Serum 1.08 mg/dL (0.70-1.30); EST Glomerular Filtration Rate 69 mL/min (>60); Est Glom Filt Rate - Afr Amer 84 mL/min (>60); Globulin 3.4 g/dL (2.2-4.2); Glucose 202 mg/dL (74-106); High Density Lipoprotein 50 mg/dL; Potassium 4.2 mmol/L (3.5-5.1); Protein, Total 7.3 g/dL (6.4-8.2); Sodium Level 137 mmol/L (136-145); Thyroid Stim Hormone (TSH) 1.61 uIU/mL (0.358-3.74); Triglycerides 155 mg/dL; Very Low Density Lipoprotein 31 mg/dL (5-40)
== END ==
PROVIDERS: PCP Family Medicine Geriatric Medicine; Visit Provider Family Medicine Geriatric Medicine
DX: E11.9 Type 2 diabetes mellitus without complications (principal); I10 Essential (primary) hypertension; E78.5 Hyperlipidemia, unspecified; E55.9 Vitamin D deficiency, unspecified
CPT/HCPCS: 36415; 80053; 80061; 82306; 84443; 85025

== ENCOUNTER → 2020-04-21 09:51 | Outpatient (CLI) | payer MEDICARE, SELFPAY ==
[2019-05-03 10:30] VITALS: BMI 22.6
[2020-04-21 12:25] LABS: Absolute Lymphocyte Count 1.78 X10^3/uL (0.83-4.51); Absolute Neutrophil Count 3.6 X10^3/uL (2.0-7.7); Basophil# 0.09 X10^3/uL; Basophil% 1.4 % (0-1); Eosinophil# 0.36 X10^3/uL; Eosinophils% 5.7 % (0-5); Hematocrit 44.9 % (40-54); Hemoglobin 14.4 g/dL (13.0-16.5); Lymphocyte # 1.78 X10^3/ul (4.0); Lymphocyte % 28.3 % (19-41); Mean Corp Hgb Conc 32.1 g/dL (32-36); Mean Corpuscular Volume 99.8 fL (80-94); Mean Platelet Vol. 9.3 fl (6.2-12.0); Monocyte# 0.47 X10^3/uL; Monocyte% 7.5 % (0-10); NRBC Flagged by Analyzer 0 % (0-5); Neutrophil # 3.57 X10^3/uL (2.7-7.7); Neutrophil % 56.8 % (47-70); Platelet Count 183 K/mm3 (150-450); RBC Distribution Width CV 12.4 % (11.6-14.6); RBC Distribution Width SD 45.6 fl (35.1-43.9); White Blood Count 6.3 K/mm3 (4.4-11.0)
[2020-04-21 12:39] LABS: Vitamin D,25 Hydroxy 23.5 ng/mL
[2020-04-21 13:01] LABS: AST(SGOT) 12 U/L (15-37); Alanine Aminotransfer ALT/SGPT 12 U/L (16-61); Albumin, Serum 3.5 g/dL (3.2-5.0); Alkaline Phosphatase 52 U/L (45-117); Anion Gap 6 (5-15); BUN 13 mg/dL (7-18); BUN/Creat Ratio 12.4 RATIO (10-20); Calcium,Total 8.8 mg/dL (8.5-10.1); Chloride 103 mmol/L (98-107); Cholesterol 211 mg/dL (200); Creatinine, Serum 1.05 mg/dL (0.70-1.30); EST Glomerular Filtration Rate 72 mL/min (>60); Est Glom Filt Rate - Afr Amer 87 mL/min (>60); Globulin 3.4 g/dL (2.2-4.2); Glucose 199 mg/dL (74-106); High Density Lipoprotein 51 mg/dL; Protein, Total 6.9 g/dL (6.4-8.2); Sodium Level 139 mmol/L (136-145); Thyroid Stim Hormone (TSH) 2.12 uIU/mL (0.358-3.74); Triglycerides 170 mg/dL; Very Low Density Lipoprotein 34 mg/dL (5-40)
== END ==
PROVIDERS: PCP Family Medicine Geriatric Medicine; Visit Provider Family Medicine Geriatric Medicine
DX: E11.65 Type 2 diabetes mellitus with hyperglycemia (principal); I10 Essential (primary) hypertension; E78.5 Hyperlipidemia, unspecified; E55.9 Vitamin D deficiency, unspecified
CPT/HCPCS: 36415; 80053; 80061; 82306; 84443; 85025

== ENCOUNTER → 2020-05-01 07:19 | Outpatient (CLI) | payer MEDICARE, SELFPAY ==
[2020-04-21 15:08] VITALS: BMI 21.4
--- NOTE | 2020-05-01 17:40 | STRESSREP_ITS ---
Stress Test Report Pharmacologic myocardial perfusion stress test. 84-year-old man with a history of coronary artery disease. And chest pain. Medications aspirin, atorvastatin, metoprolol. Stress protocol: Resting EKG demonstrates sinus rhythm with a rate of 71 bpm first-degree AV block is noted. Resting blood pressure is 128/88 mmHg. 0.4 mg of regadenoson was infused per usual protocol followed by rapid intravenous saline flush injection continuous EKG monitoring was performed. The maximum heart rate attained was 84 bpm which was 61% of max impacted heart rate the maximum workload was 1 metabolic equivalent. At rest there were no ST or T wave changes noted to suggest abnormal flow reserve at peak infusion nonspecific ST changes were noted we did not denote abnormal flow reserve. No clinical angina was noted. The final blood pressure was 120/84 mmHg. Myocardial perfusion protocol. 10.3 mCi of technetium 99m sestamibi was injected at rest. 0.4 mg of regadenoson was infused per usual protocol peak infusion 36.0 mCi of technetium 99m sestamibi was injected stress images were obtained stress and rest images were reconstructed and compared in the short axis vertical long horizontal long axis. Gated images were also obtained Perfusion SPECT analysis: Review of the stress images demonstrate normal uptake of tracer noted in all are as of the myocardium the resting images similar demonstrate normal uptake of tracer noted in all areas of the myocardium. No areas of reversibility are noted suggest ischemia no previous infarct is noted. Gated SPECT analysis: The gated ejection fraction is 89%. Conclusion: Normal pharmacologic myocardial perfusion stress test. Preserved ejection fraction.
== END ==
PROVIDERS: PCP Family Medicine Geriatric Medicine; Referring Provider Nurse Practitioner Family; Visit Provider Nurse Practitioner Family
DX: R07.9 Chest pain, unspecified (principal); I25.10 Atherosclerotic heart disease of native coronary artery without angina pectoris; I10 Essential (primary) hypertension; E78.00 Pure hypercholesterolemia, unspecified; Z95.1 Presence of aortocoronary bypass graft
CPT/HCPCS: 78452; 93017; A9500; A4216; J2785

== ENCOUNTER → 2020-07-15 14:49 | Outpatient (CLI) | payer MEDICARE, SELFPAY ==
[2020-05-01 17:45] VITALS: BMI 22.6
[2020-07-15 16:22] LABS: Absolute Lymphocyte Count 1.87 X10^3/uL (0.83-4.51); Absolute Neutrophil Count 3.5 X10^3/uL (2.0-7.7); Basophil# 0.05 X10^3/uL; Basophil% 0.8 % (0-1); Eosinophil# 0.31 X10^3/uL; Hematocrit 39.6 % (40-54); Hemoglobin 12.9 g/dL (13.0-16.5); Lymphocyte # 1.87 X10^3/ul (0.83-4.51); Lymphocyte % 30.5 % (19-41); Mean Corp Hgb Conc 32.6 g/dL (32-36); Mean Corpuscular Hgb 32.6 pg (27.0-32.0); Mean Platelet Vol. 9.1 fl (6.2-12.0); Monocyte# 0.44 X10^3/uL; Monocyte% 7.2 % (0-10); NRBC Flagged by Analyzer 0 % (0-5); Neutrophil # 3.45 X10^3/uL (2.7-7.7); Neutrophil % 56.2 % (47-70); Platelet Count 212 K/mm3 (150-450); RBC Distribution Width SD 47.8 fl (35.1-43.9); Red Blood Count 3.96 M/mm3 (4.6-6.2); White Blood Count 6.1 K/mm3 (4.4-11.0)
[2020-07-15 16:36] LABS: Vitamin D,25 Hydroxy 27.6 ng/mL
[2020-07-15 16:47] LABS: ALB/GLOB Ratio 0.9 RATIO (0.9-2.4); AST(SGOT) 15 U/L (15-37); Alanine Aminotransfer ALT/SGPT 10 U/L (16-61); Albumin, Serum 3.2 g/dL (3.2-5.0); Alkaline Phosphatase 55 U/L (45-117); Anion Gap 5 (5-15); BUN 17 mg/dL (7-18); BUN/Creat Ratio 16.7 RATIO (10-20); Chloride 105 mmol/L (98-107); Cholesterol 191 mg/dL (200); Creatinine, Serum 1.02 mg/dL (0.70-1.30); EST Glomerular Filtration Rate 74 mL/min (>60); Est Glom Filt Rate - Afr Amer 90 mL/min (>60); Globulin 3.7 g/dL (2.2-4.2); Glucose 173 mg/dL (74-106); High Density Lipoprotein 37 mg/dL; Potassium 4.7 mmol/L (3.5-5.1); Protein, Total 6.9 g/dL (6.4-8.2); Sodium Level 141 mmol/L (136-145); Triglycerides 248 mg/dL; Very Low Density Lipoprotein 50 mg/dL (5-40)
== END ==
PROVIDERS: PCP Family Medicine Geriatric Medicine; Visit Provider Family Medicine Geriatric Medicine
DX: E11.9 Type 2 diabetes mellitus without complications (principal); E55.9 Vitamin D deficiency, unspecified; E78.5 Hyperlipidemia, unspecified; I10 Essential (primary) hypertension
CPT/HCPCS: 36415; 80053; 80061; 82306; 84443; 85025

== ENCOUNTER → 2020-09-24 15:57 | Outpatient (CLI) | payer MEDICARE, SELFPAY ==
[2020-05-01 17:45] VITALS: BMI 22.6
[2020-09-24 16:50] LABS: Absolute Lymphocyte Count 2.72 X10^3/uL (0.83-4.51); Absolute Neutrophil Count 5.4 X10^3/uL (2.0-7.7); Basophil# 0.05 X10^3/uL; Basophil% 0.5 % (0-1); Eosinophil# 0.32 X10^3/uL; Eosinophils% 3.5 % (0-5); Hematocrit 41.6 % (40-54); Hemoglobin 13.5 g/dL (13.0-16.5); Lymphocyte # 2.72 X10^3/ul (0.83-4.51); Lymphocyte % 29.5 % (19-41); Mean Corp Hgb Conc 32.5 g/dL (32-36); Mean Corpuscular Hgb 32.4 pg (27.0-32.0); Mean Corpuscular Volume 99.8 fL (80-94); Monocyte# 0.74 X10^3/uL; NRBC Flagged by Analyzer 0 % (0-5); Neutrophil # 5.36 X10^3/uL (2.7-7.7); Neutrophil % 58.3 % (47-70); Platelet Count 184 K/mm3 (150-450); RBC Distribution Width CV 12.8 % (11.6-14.6); RBC Distribution Width SD 46.7 fl (35.1-43.9); Red Blood Count 4.17 M/mm3 (4.6-6.2); White Blood Count 9.2 K/mm3 (4.4-11.0)
[2020-09-24 17:10] LABS: AST(SGOT) 13 U/L (15-37); Alanine Aminotransfer ALT/SGPT 16 U/L (16-61); Albumin, Serum 3.8 g/dL (3.2-5.0); Alkaline Phosphatase 60 U/L (45-117); Anion Gap 6 (5-15); BUN 13 mg/dL (7-18); BUN/Creat Ratio 13.6 RATIO (10-20); Calcium,Total 9.2 mg/dL (8.5-10.1); Chloride 104 mmol/L (98-107); Creatinine, Serum 0.96 mg/dL (0.70-1.30); EST Glomerular Filtration Rate 80 mL/min (>60); Est Glom Filt Rate - Afr Amer 97 mL/min (>60); Globulin 3.7 g/dL (2.2-4.2); Glucose 143 mg/dL (74-106); Potassium 4.2 mmol/L (3.5-5.1); Protein, Total 7.5 g/dL (6.4-8.2); Sodium Level 140 mmol/L (136-145); Thyroid Stim Hormone (TSH) 1.36 uIU/mL (0.358-3.74)
== END ==
PROVIDERS: PCP Family Medicine Geriatric Medicine; Visit Provider Family Medicine Geriatric Medicine
DX: G93.9 Disorder of brain, unspecified (principal); I10 Essential (primary) hypertension
CPT/HCPCS: 36415; 80053; 84443; 85025

== ENCOUNTER 2020-09-27 19:24 | Inpatient (IN) | payer MEDICARE, SELFPAY ==
[2020-05-01 17:45] VITALS: BMI 22.6
[2020-09-27 19:26] VITALS: BP 133/70; PULSE 61; RESP 14; TEMP 36; O2SAT 96; BMI 22.2
--- NOTE | 2020-09-27 20:32 | CT_ITS ---
STUDY: CT BRAIN WITHOUT CONTRAST REASON FOR EXAM: Male, 85 years old. Stroke RADIATION DOSAGE (If Supplied By Facility): CTDIvol = ( 44.99 ) mGy, DLP = ( 796.11 ) mGycm TECHNIQUE: Transaxial CT imaging of the brain was performed without administration of intravenous contrast material. Individualized dose optimization techniques were used for this CT. COMPARISON: 12/08/2017 FINDINGS: Normal soft tissue structures. Normal calvarium. There is moderate cerebral atrophy with widening of the extra-axial spaces and ventricular dilatation. There are areas of decreased attenuation within the white matter tracts of the supratentorial brain, consistent with microvascular disease changes. There are small punctate calcifications of the basal ganglia which are seen in the aging brain as a normal variant. There is a low-attenuation focus within the right basal ganglia. Normal brainstem. There is moderate cerebellar atrophy. There is no intracranial hemorrhage. There are no findings of an acute ischemic infarction. Normal visualized paranasal sinuses. CT/Brain/Head without Contrast IMPRESSION: Chronic involutional changes of the brain. Small vessel ischemia. Low attenuation focus within the right basal ganglia may be secondary to a remote infarct. Electronically Signed: Aylin Rolle MD at 22:01 EDT Tel , Service support ,
--- NOTE | 2020-09-27 20:33 | EKG12_ITS ---
Test Reason : NEURO Blood Pressure : / mmHG Vent. Rate : 078 BPM Atrial Rate : 078 BPM P-R Int : 274 ms QRS Dur : 106 ms QT Int : 400 ms P-R-T Axes : 062 029 035 degrees QTc Int : 456 ms Sinus rhythm with 1st degree A-V block with Premature atrial complexes Low voltage QRS Nonspecific T wave abnormality Abnormal ECG Confirmed by PAULO GROVES, CHANDRAKANT ([id number]), assistant editor ANGELA LECHUGA ([id number]) on 09/30/2020 9:34:50 AM Referred By: Confirmed By:CHANDRAKANT BATES MD
[2020-09-27 20:38] VITALS: PULSE 72; RESP 17; O2SAT 95; BMI 22.2
[2020-09-27 20:43] LABS: Absolute Lymphocyte Count 2.11 X10^3/uL (0.83-4.51); Absolute Neutrophil Count 3.1 X10^3/uL (2.0-7.7); Basophil# 0.04 X10^3/uL; Basophil% 0.7 % (0-1); Eosinophil# 0.31 X10^3/uL; Eosinophils% 5.2 % (0-5); Hematocrit 39.9 % (40-54); Hemoglobin 13.1 g/dL (13.0-16.5); Lymphocyte # 2.11 X10^3/ul (0.83-4.51); Lymphocyte % 35.6 % (19-41); Mean Corp Hgb Conc 32.8 g/dL (32-36); Mean Corpuscular Hgb 32.4 pg (27.0-32.0); Mean Corpuscular Volume 98.8 fL (80-94); Mean Platelet Vol. 9.2 fl (6.2-12.0); Monocyte# 0.34 X10^3/uL; Monocyte% 5.7 % (0-10); NRBC Flagged by Analyzer 0 % (0-5); Neutrophil % 52.5 % (47-70); Platelet Count 170 K/mm3 (150-450); RBC Distribution Width CV 12.8 % (11.6-14.6); RBC Distribution Width SD 46.2 fl (35.1-43.9); Red Blood Count 4.04 M/mm3 (4.6-6.2); White Blood Count 5.9 K/mm3 (4.4-11.0)
--- NOTE | 2020-09-27 20:43 | EDS_ITS ---
HPI History of Present Illness Chief Complaint: Neuro S/Sx Informant: family Onset/Context/Timing Onset: Days (4) Context: Gradual Onset Timing: Continuous Quality: Weakness Worsened by: Nothing Relieved by: Nothing Narrative Narrative: Patient presents with increasing confusion over the last 4 days. Family states the patient had a medication change recently. Family states that patient has been leaning to the left whenever he walks. Family also noted some left facial weakness. Family states that when he tries to drink liquids from a straw he is unable to hold the liquids in his mouth and they come out the left side. Patient feels weak. Family states the patient has been having some incontinence of urine. [facility] Medical History (Updated 09/27/20 @ 23:[address] Christoph Hu, DO) Central sleep apnea in conditions classified elsewhere Essential (primary) hypertension Hyperlipidemia Parkinson disease Paroxysmal ventricular tachycardia White coat syndrome without hypertension Home Medications aspirin 81 mg tablet,delayed release 81 mg PO QDAY tab 05/02/17 [History Last Taken 08/31/17] fluticasone propionate 50 mcg/actuation nasal spray,suspension 1 spray INTRANASAL QDAY PRN 05/05/17 [History Last Taken Unknown] vit C 250 mg-vit E 90 mg-zinc 40 mg-copper 1 [id number] capsule 1 tab PO BID 05/05/17 [History Last Taken Unknown] carbidopa-levodopa 1 ea PO QHS 09/02/17 [History Last Taken 09/09/17 03:45] metoprolol succinate 50 mg tablet,extended release 24 hr 50 mg PO DINNER #90 tab 09/20/17 [Rx Last Taken Unknown] metformin 500 mg tablet 500 mg PO BID PRN 05/02/18 [History Last Taken Unknown] donepezil 5 mg tablet 5 mg PO DAILY 05/03/19 [History Last Taken Unknown] atorvastatin 40 mg tablet 40 mg PO QHS #90 tab 05/19/19 [Rx Last Taken Unknown] Allergy/AdvReac Type Severity Reaction Status Date / Time azithromycin Allergy Swelling Verified 09/27/20 19:25 Family History Father , Age 87 from cardiac arrest CAD (coronary artery disease) Sudden cardiac Myocardial infarction Mother , Age 33 after mastoid operation Surgical complication involving mastoid process Brother , age 79 of [place] CAD (coronary artery disease) Diabetes Myocardial infarction Brother , Parkinson's disease No problems noted. Other Heart disease Surgical History Atherosclerotic heart disease of [place] coronary artery without angina pectoris H/O coronary artery bypass surgery (09/10/04) History of coronary artery stent placement (07/21/04) History of left heart catheterization (08/25/04) Social History Smoking Status: Former smoker ROS ROS ED Constitutional Constitutional ED: Denies chills or fever(s) Eyes Eyes: Denies blurry vision or change in vision ENT ENT ED: Denies rhinorrhea or sore throat Cardiovascular Cardiovascular: Denies chest pain or palpitations Respiratory/Chest Respiratory/Chest: Denies cough or dyspnea Gastrointestinal Gastrointestinal: Denies nausea or vomiting Genitourinary Genitourinary ED: Denies dysuria or hematuria Musculoskeletal Musculoskeletal: Reports back pain; Denies neck pain Integumentary Denies abscess or rash Neurologic Neurologic: Reports weakness; Denies headache(s) Allergic/Immunologic Allergic/Immunologic ED: Denies mouth swelling or urticaria EXAM Physical Exam Const Vital Signs: 09/27/20 19:26 09/27/20 20:38 09/27/20 22:17 Temperature 96.8 F L Temperature Source Temporal Pulse Rate 61 72 79 Respiratory Rate 14 17 16 Blood Pressure 133/70 H 146/76 H Blood Pressure Mean 91 99 Pulse Ox 96 95 93 Oxygen Delivery Method Room Air Room Air Room Air 09/27/20 23:05 Temperature Temperature Source Pulse Rate 81 Respiratory Rate 8 L Blood Pressure 147/90 H Blood Pressure Mean 109 Pulse Ox 94 Oxygen Delivery Method Room Air Positive well nourished and well developed General Appearance ED: well developed HEENT Reports moist mucous membranes Neck supple and no JVD Resp normal respiratory effort and clear to auscultation bilaterally Cardio regular rate and regular rhythm GI normal to inspection, nondistended, normoactive bowel sounds and non-tender Palpation: soft Neuro oriented x3 Sensorium / Orientation: alert Psych mental status grossly normal MDM MDM MDM Narrative Medical decision making narrative: EKG was obtained. On my interpretation, it showed a sinus rhythm with a rate of 78 with occasional PACs and first-degree AV block. QRS interval, and QTc intervals were normal. [place] was normal. There are nonspecific ST-T wave changes. CT scan of the brain was obtained. There may be a remote infarct in the right basal ganglia. There is small vessel ischemia and chronic changes. There is no acute bleed. This was interpreted by the radiologist and reviewed by myself. CBC and comprehensive metabolic profile were essentially within normal limits. Lactate was normal. Urinalysis does not show any evidence of urinary tract infection. Initial high-sensitivity troponin was normal. Since the patient is having left facial weakness and leaning to the left whenever he walks, I feel admission for further evaluation of a stroke is warranted. Case was discussed with the hospitalist. He will admit the patient to PCU. Family understood and was agreeable with the plan. All questions were answered. Lab Data Attestation: I reviewed the patient's lab results. Labs: Laboratory Results - last 24 hr 09/27/20 09/27/20 09/27/20 19:40 19:40 20:40 WBC 5.9 RBC 4.04 L Hgb 13.1 Hct 39.9 L MCV 98.8 H MCH 32.4 H MCHC 32.8 RDW Std Deviation 46.2 H RDW Coeff of Alejandra 12.8 Plt Count 170 MPV 9.2 Immature Gran % (Auto) 0.300 Neut % (Auto) 52.5 Lymph % (Auto) 35.6 [place] % (Auto) 5.7 Eos % (Auto) 5.2 H Baso % (Auto) 0.7 Absolute Neuts (auto) 3.1 Absolute Lymphs (auto) 2.11 Nucleated RBC % 0 Sodium 141 Potassium 4.4 Chloride 106 Carbon Dioxide 30.0 Anion Gap 5 BUN 15 Creatinine 1.09 Estim Creat Clear Calc 44.60 Est GFR (MDRD) Af Amer 83 Est GFR (MDRD) Non-Af 69 BUN/Creatinine Ratio 13.8 Glucose 146 H Lactic Acid 1.8 Calcium 9.2 Total Bilirubin 0.40 AST 14 L ALT 9 L Alkaline Phosphatase 55 Troponin I High Sens 9.0 Total Protein 7.0 Albumin 3.5 Globulin 3.5 Albumin/Globulin Ratio 1.0 Urine Color Urine Clarity Urine pH Ur Specific [place] Urine Protein Urine Glucose (UA) Urine Ketones Urine Occult Blood Urine Nitrite Urine Bilirubin Urine Urobilinogen Ur Leukocyte Esterase Urine RBC Urine WBC Ur Squamous Epith Cells Urine Bacteria Urine Mucus 09/27/20 21:12 WBC RBC Hgb Hct MCV MCH MCHC RDW Std Deviation RDW Coeff of Alejandra Plt Count MPV Immature Gran % (Auto) Neut % (Auto) Lymph % (Auto) [facility] % (Auto) Eos % (Auto) Baso % (Auto) Absolute Neuts (auto) Absolute Lymphs (auto) Nucleated RBC % Sodium Potassium Chloride Carbon Dioxide Anion Gap BUN Creatinine Estim Creat Clear Calc Est GFR (MDRD) Af Amer Est GFR (MDRD) Non-Af BUN/Creatinine Ratio Glucose Lactic Acid Calcium Total Bilirubin AST ALT Alkaline Phosphatase Troponin I High Sens Total Protein Albumin Globulin Albumin/Globulin Ratio Urine Color Yellow Urine Clarity Clear Urine pH 6.0 Ur Specific [place] 1.015 Urine Protein Negative Urine Glucose (UA) Normal Urine Ketones Negative Urine Occult Blood Negative Urine Nitrite Negative Urine Bilirubin Negative Urine Urobilinogen Normal Ur Leukocyte Esterase Negative Urine RBC 0 SEEN Urine WBC 0 SEEN Ur Squamous Epith Cells 0 SEEN Urine Bacteria 0 SEEN Urine Mucus 0 SEEN Radiography Diagnostic Testing: Radiology Impression Brain CT 09/27/20 20:32 IMPRESSION: Chronic involutional changes of the brain. Small vessel ischemia. Low attenuation focus within the right basal ganglia may be secondary to a remote infarct. Electronically Signed: Aylin Rolle MD at 22:01 EDT Tel , Service support , EKG Initial EKG: Attestation: I personally reviewed and interpreted this EKG as follows: Interpretation: Sinus Rhythm (With first-degree AV block and occasional PACs with a rate of 78) and Non-Specific ST Changes Prior EKG tracings: available for review Prior: Unchanged (04/21/2020) Treatment and Re-Evaluation Vital Sign Attestation:: Vital signs were reviewed prior to admission. They are stable. Discharge Plan Dx/Rx/DC Orders Clinical Impression: Stroke Disposition Disposition: Acute Care Hospital [facility]
[2020-09-27 21:09] LABS: AST(SGOT) 14 U/L (15-37); Alanine Aminotransfer ALT/SGPT 9 U/L (16-61); Albumin, Serum 3.5 g/dL (3.2-5.0); Alkaline Phosphatase 55 U/L (45-117); Anion Gap 5 (5-15); BUN 15 mg/dL (7-18); BUN/Creat Ratio 13.8 RATIO (10-20); Calcium,Total 9.2 mg/dL (8.5-10.1); Chloride 106 mmol/L (98-107); Creatinine, Serum 1.09 mg/dL (0.70-1.30); EST Glomerular Filtration Rate 69 mL/min (>60); Est Glom Filt Rate - Afr Amer 83 mL/min (>60); Globulin 3.5 g/dL (2.2-4.2); Glucose 146 mg/dL (74-106); Potassium 4.4 mmol/L (3.5-5.1); Sodium Level 141 mmol/L (136-145)
[2020-09-27 21:24] LABS: Bacteria 0 SEEN /hpf (None Seen); Mucous, Urine 0 SEEN /hpf (<or=2+); Red Blood Cells-Urine 0 SEEN /hpf (0-5); Squamous Epithelial Cells - UA 0 SEEN /hpf (0-5); White Blood Cells 0 SEEN /hpf (0-5)
[2020-09-27 21:26] LABS: Color, Urine Yellow (Yellow); Glucose, Dipstick Normal (Normal); Ketone-Dipstick Negative (Negative); Leukocyte Esterase-Dipstick Negative /ul (Negative); Nitrite-Dipstick Negative (Negative); Occult Blood-Urine Negative /ul (Negative); Protein-Dipstick Negative (Negative); Specific Gravity, Urine 1.015 (1.002-1.030); Urine Bilirubin Dipstick Negative (Negative); Urine Clarity Clear (Clear); Urine Urobilinogen Normal (Normal)
[2020-09-27 21:35] LABS: Lactic Acid 1.8 mmol/L (0.4-1.9)
[2020-09-27 22:17] VITALS: BP 146/76; PULSE 79; RESP 16; O2SAT 93
[2020-09-27 23:05] VITALS: BP 147/90; PULSE 81; RESP 8; O2SAT 94
--- NOTE | 2020-09-27 23:58 | HP.PCM.HOS_ITS ---
HPI - General General Date of Admission: 09/27/20 Date of Service: 09/27/20 Chief Complaint: Drifting on the left side, fall HPI Narrative MERON AUSTIN, is a 85 M with multiple comorbidities brought to ER for increasing confusion, altered mental status for last 4 days. As per the family in ED, he is drifting on the left side and patient claims that he also fell on his buttock. Family also noticed left facial droop, drooling of the liquid from the left corner of mouth unable to hold liquid in the mouth. History from the patient himself is difficult as he is confused and trying to get out of bed. Patient has urinary incontinence and he had urine accident in the bed in PCU. 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 Essential (primary) hypertension Hyperlipidemia Parkinson disease Paroxysmal ventricular tachycardia White coat syndrome without hypertension Home Medications aspirin 81 mg tablet,delayed release 81 mg PO QDAY tab 05/02/17 [History Last Taken 08/31/17] vit C 250 mg-vit E 90 mg-zinc 40 mg-copper 1 [id number] capsule 1 tab PO DAILY 05/05/17 [History Last Taken Unknown] metoprolol succinate 50 mg tablet,extended release 24 hr 50 mg PO DINNER #90 tab 09/20/17 [Rx Last Taken Unknown] carbidopa-levodopa 1 tab PO TID 09/28/20 [History Last Taken Unknown] citalopram [Celexa] 20 mg PO DAILY 09/28/20 [History Last Taken Unknown] donepezil 10 mg PO QHS 09/28/20 [History Last Taken Unknown] olanzapine 5 mg PO BID 09/28/20 [History Last Taken Unknown] Allergy/AdvReac Type Severity Reaction Status Date / Time azithromycin Allergy Swelling Verified 09/27/20 19:25 Family History Father , Age 87 from cardiac arrest CAD (coronary artery disease) Sudden cardiac Myocardial infarction Mother , Age 33 after mastoid operation Surgical complication involving mastoid process Brother , age 79 of [place] CAD (coronary artery disease) Diabetes Myocardial infarction Brother , Parkinson's disease No problems noted. Other Heart disease Surgical History Atherosclerotic heart disease of [place] coronary artery without angina pectoris H/O coronary artery bypass surgery (09/10/04) History of coronary artery stent placement (07/21/04) History of left heart catheterization (08/25/04) Social History household members: significant other housing: house current occupational status: retired Smoking Status: Former smoker quit date: 02/14/95 quit status: has quit before alcohol intake: current details: 1 beer per month ROS ROS Narrative 12 ROS unobtainable as patient is confused and disoriented Review of Systems ROS Unobtainable: due to encephalopathy Vital Signs Vital Signs Vital Signs: 09/27/20 19:26 09/27/20 20:38 09/27/20 22:17 Temperature 96.8 F L Temperature Source Temporal Pulse Rate 61 72 79 Respiratory Rate 14 17 16 Blood Pressure 133/70 H 146/76 H Blood Pressure Mean 91 99 Pulse Ox 96 95 93 Oxygen Delivery Method Room Air Room Air Room Air 09/27/20 23:05 Temperature Temperature Source Pulse Rate 81 Respiratory Rate 8 L Blood Pressure 147/90 H Blood Pressure Mean 109 Pulse Ox 94 Oxygen Delivery Method Room Air Weight Weight: 137 lb 12.623 oz Body Mass Index (BMI) 22.2 Physical Exam Narrative General: Confused to time and place., disoriented, restless HEENT: Left facial droop. Atraumatic, PERRLA, EOMI, Normocephalic Oral: Fast nursing screen dysphagia test. no Gingival or Mucosal Lesions/ Ulcerations Neck: Supple, No JVD, Negative Carotid Bruits Lungs: Air entry diminished in bilateral lung bases. No crepitation/rhonchi Cardiovascular: Sinus rhythm, Normal S1, Normal S2, ejection systolic murmur, right second ICS with radiation to carotids, 3/6 Abdomen: Bowel Sounds Present, Soft, Non Tender, Non-Distended : No renal angle tenderness. No suprapubic tenderness. Chronic urinary incontinence Extremities: No edema, Capillary Refill Less than 3 Seconds Skin: No rashes, No breakdown Musculoskeletal: No Tenderness to Palpation of Joints or Extremities Neurological: Mild weakness in both legs but also legs for 5 seconds. Mild language deficit and dysarthria left facial palsy. NIHSS 6 Psych/Mental Status: Flat affect. Results Lab / Micro Data Result Diagrams: 09/27/20 19:40 09/27/20 19:40 Labs: Laboratory Results - last 24 hr 09/27/20 19:40: WBC 5.9, RBC 4.04 L, Hgb 13.1, Hct 39.9 L, MCV 98.8 H, MCH 32.4 H, MCHC 32.8, RDW Std Deviation 46.2 H, RDW Coeff of Alejandra 12.8, Plt Count 170, MPV 9.2, Immature Gran % (Auto) 0.300, Neut % (Auto) 52.5, Lymph % (Auto) 35.6, [place] % (Auto) 5.7, Eos % (Auto) 5.2 H, Baso % (Auto) 0.7, Absolute Neuts (auto) 3.1, Absolute Lymphs (auto) 2.11, Nucleated RBC % 0 09/27/20 19:40: Sodium 141, Potassium 4.4, Chloride 106, Carbon Dioxide 30.0, Anion Gap 5, BUN 15, Creatinine 1.09, Estim Creat Clear Calc 44.60, Est GFR (MDRD) Af Amer 83, Est GFR (MDRD) Non-Af 69, BUN/Creatinine Ratio 13.8, Glucose 146 H, Calcium 9.2, Total Bilirubin 0.40, AST 14 L, ALT 9 L, Alkaline Phosphatase 55, Troponin I High Sens 9.0, Total Protein 7.0, Albumin 3.5, Globulin 3.5, Albumin/Globulin Ratio 1.0 09/27/20 20:40: Lactic Acid 1.8 09/27/20 21:12: Urine Color Yellow, Urine Clarity Clear, Urine pH 6.0, Ur Specific [place] 1.015, Urine Protein Negative, Urine Glucose (UA) Normal, Urine Ketones Negative, Urine Occult Blood Negative, Urine Nitrite Negative, Urine Bilirubin Negative, Urine Urobilinogen Normal, Ur Leukocyte Esterase Negative, Urine RBC 0 SEEN, Urine WBC 0 SEEN, Ur Squamous Epith Cells 0 SEEN, Urine Bacteria 0 SEEN, Urine Mucus 0 SEEN Radiology Impression Brain CT 09/27/20 20:32 IMPRESSION: Chronic involutional changes of the brain. Small vessel ischemia. Low attenuation focus within the right basal ganglia may be secondary to a remote infarct. Electronically Signed: Aylin Rolle MD at 22:01 EDT Tel , Service support , Assessment & Plan Assessment/Plan (1) Ischemic stroke: PLAN: in May 04 which was negative. Coronary artery status post CABGThis 85-year-old gentleman admitted with 4-day history of left- sided drift on walking, facial droop, dysarthria and language deficit along with confusion/altered mental status 1. Acute encephalopathy, most likely from subacute/acute ischemic stroke: Patient is being admitted in PCU on telemetry. CT head reported low-attenuation focus within the right basal ganglia possible secondary to remote infarct. CTA head and neck was done and radiologist called to PCU nursing station informed charge nurse, Mckenzie that patient has subacute/acute stroke involving the right basal ganglia. No evidence of cervical or proximal intracranial vascular occlusion or focal filling stenosis. MRI head is ordered. Patient is on aspirin and high intensity statin. Plavix is added. 2D echo is ordered. Patient will need SOC neurology consult when a stroke work-up is complete. Twelve-lead EKG shows normal sinus rhythm, first-degree block, with PACs, low voltage QRS at 78 bpm. QTc 456 ms. NIH stroke scale. PT OT and speech evaluation as per stroke guidelines. BP and glucose control as per stroke guidelines. Profile, TSH and A1c tomorrow a.m. 2. Coronary artery disease status post CABG in 2004. Patient had myocardial nuclear stress test. On metoprolol and baby aspirin. 3. Parkinson's disease: On carbidopa levodopa. Continued 4. Other comorbidities include hypertension and dyslipidemia: Home medications continued 5. Dementia, anxiety and mild depression: Hold olanzapine. Continue donezepil. Citalopram continued at lower dose. VT prophylaxis: Lovenox 40 subcu daily. Discontinue if platelet count drops less than 50,000 or hemoglobin less than 8 g% Living will/advanced directive/end of life care: Patient does have living will or advanced directive. Patient states his is power of securities attorney for health. After discussion of benefits/risks procedures involved with full code, DNR CC arrest and DNR CC, the patient opted for DNR-CC Arrest with no intubation Patient does not want artificial life support including intubation, tube feed, ventilator and/chest compression, central venous catheter, vasopressor and DC shock if needed Total time spent in [id number] encounter in discussion of advanced directive 16 minutes.
[2020-09-28] VITALS (16 sets, daily range): BP systolic 113–169; BP diastolic 60–97; PULSE 64–86; RESP 14–18; TEMP 36.2–37.2; O2SAT 93–97; BMI 21.6
--- NOTE | 2020-09-28 00:50 | CT_ITS ---
HISTORY: Neuro deficit, acute, stroke suspected TECHNIQUE: Noncontrast CT head followed by routine head and neck CT angiogram protocol was performed with 100 mL Isovue 300 IV contrast. Nascet criteria using the distal ICAs for comparison were used for evaluation of stenoses. 3D reconstructions were reviewed. A radiation dose optimization technique was used for this scan. COMPARISON: December [address] head[address] September 27, 2020 CT head FINDINGS: # of images incl. paperwork: [id number] head: Redemonstration of right superior basal ganglia hypodensity, stable to slightly more apparent than on prior CT. No new morel-white matter differentiation loss. No intracranial hemorrhage. No midline shift or other significant mass-effect. Senescent global pallidus mineralization. Carotid and vertebral atherosclerosis. INCIDENTAL MASSES/FLUID COLLECTIONS: Chronic partial empty sella. Mild ethmoid sinus mucoperiosteal thickening. --Neck: AORTIC ARCH: Unremarkable. CAROTID ARTERIES: Bilateral carotid bifurcation atherosclerosis. Symmetric without dissection or flow limiting stenosis. VERTEBRAL ARTERIES: Symmetric without dissection or flow limiting stenosis. ANEURYSM: No evidence of aneurysmal dilatation. --Head: INTRACRANIAL CAROTIDS: Mild bilateral cavernous carotid atherosclerosis. No dissection or flow limiting stenosis. ANTERIOR AND MIDDLE CEREBRAL ARTERIES: Congenitally diminutive right A1 segment. Anterior and middle cerebral arteries are otherwise symmetric without occlusion or flow limiting stenosis. ANTERIOR COMMUNICATING ARTERY: Intact INTRACRANIAL VERTEBRAL AND BASILAR ARTERY: No dissection or flow limiting stenosis. POSTERIOR CEREBRAL ARTERIES: Symmetric without occlusion or flow limiting stenosis. POSTERIOR COMMUNICATING ARTERIES: Not seen ANEURYSM: No evidence of aneurysmal dilatation. CT/STROKE CTA Head AND Neck W/Con IMPRESSION: No evidence of cervical or proximal intracranial vascular occlusion or focal filling stenosis. Slight increased conspicuity of right basal ganglia hypodensity, favored to represent acute or subacute stroke. MRI could further evaluate as clinically indicated. Individualized dose optimization techniques were used for this CT. at 0219 Reported and signed by: Brett Eemry MD N.B. : The above Results were Read Back by Brett Emery MD to Ju Hand RN, and understanding confirmed on 09/28/2020 02:15:34 (ET). Electronically Signed: Brett Emery MD at 2:17 EDT Tel , Service support ,
[2020-09-28] MEDS: Atorvastatin Calcium 80 MG Tablet PO ×2 (01:20→20:40)
[2020-09-28] MEDS: Enoxaparin 40 MG/0.4 ML Syringe SC (01:20)
[2020-09-28] MEDS: Lactated Ringers 1,000 ML 75 ML IV (01:20)
[2020-09-28] MEDS: 0.9% Saline Lock 10 ML Syringe IV (01:22)
--- NOTE | 2020-09-28 05:55 | MRI_ITS ---
We are attempting to reach an attending provider to discuss findings. An addendum with communication details will be sent when the communication is complete. STUDY: MRI BRAIN WITHOUT CONTRAST REASON FOR EXAM: Male, 85 years old. stroke TECHNIQUE: Standardized multiplanar fat and water weighted pulse sequences were obtained. COMPARISON: CT 09/27/2020, MRI 06/02/2017 FINDINGS: There is mild cerebral atrophy with widening of the extra-axial spaces and ventricular dilatation. There are a limited number of small white matter hyperintensities, distributed throughout the deep white matter tracts of the cerebral hemispheres, consistent with mild chronic white matter ischemic changes. Hyperintensity the right basal ganglia demonstrates restricted diffusion consistent with subacute infarct. Normal T2* images of the brain without demonstrated susceptibility artifact. There is no demonstrated hemosiderin stain. Normal thalami. There is no extra-axial fluid accumulation. Normal flow voids within the major intracranial circulation suggesting patency by spin echo criteria. There is enlargement of the sella turcica with increased CSF within the sella and flattening of the pituitary gland consistent with an empty sellar syndrome. Normal infundibular stalk, hypothalamus, and optic chiasm. Normal tectal plate and pineal gland. Normal midbrain, jesenia and medulla. Normal cerebellum. Normal basal cisterns. Normal bilateral temporal bones. Normal bilateral internal auditory canals. No demonstrated orbital abnormality, within the constraints of a routine brain study. Normal visualized paranasal sinuses. Normal calvarium and skull base. Normal visualized soft tissue structures. Normal visualized upper cervical spine. MRI/Brain without Contrast IMPRESSION: Involutional changes of the brain, as described above. Subacute infarcts of the right basal ganglia. Electronically Signed: Oscar Monroe MD at 12:32 EDT Tel , Service support ,
[2020-09-28] MEDS: CARBIDOPA/LEVODOPA CR 50/200 Tablet PO ×3 (06:04→20:40)
[2020-09-28] MEDS: Insulin Lispro 100 UNIT/ML INSULN.PEN SC ×3 (06:10→20:44)
[2020-09-28 06:36] LABS: Bedside Glucose 190 mg/dL (70-110)
[2020-09-28 07:24] LABS: Cholesterol 167 mg/dL (200); High Density Lipoprotein 42 mg/dL; Magnesium 1.9 mg/dL (1.6-2.6); Thyroid Stim Hormone (TSH) 1.02 uIU/mL (0.358-3.74); Triglycerides 125 mg/dL; Very Low Density Lipoprotein 25 mg/dL (5-40)
[2020-09-28 08:20] LABS: Hemoglobin A1c 7.3 % (3.8-5.6)
[2020-09-28] MEDS: Famotidine 20 MG Tablet PO (09:03)
[2020-09-28] MEDS: Aspirin 81 MG TAB.CHEW PO (09:03)
[2020-09-28] MEDS: Citalopram 10 MG Tablet PO (09:03)
[2020-09-28] MEDS: Multivitamins,Therapeutic Tablet 1 TABLET PO (09:03)
[2020-09-28] MEDS: Clopidogrel Bisulfate 75 MG Tablet PO (09:04)
--- NOTE | 2020-09-28 10:45 | PCM.PN.HOSP ---
Documented by User: Jennifer Hagan MANAGER DEVELOPMENTAL, MANAGER DEVELOPMENTAL-C 09/28/20 11:00 Subjective Subjective Patient seen and examined. Resting in chair eating breakfast, pleasantly confused. Denies current symptoms or complaints. No noted focal/neurologic deficits. Objective Data Objective Data Vital Signs: Vital Signs Temp Pulse Resp BP Pulse Ox 97.6 F L 84 18 169/97 H 95 09/28/20 08:50 09/28/20 08:50 09/28/20 08:50 09/28/20 08:50 09/28/20 08:50 Oxygen Delivery Method Room Air Weight: 134 lb Body Mass Index (BMI) 21.6 Intake & Output: Intake and Output for Last 24 Hours 09/26/20 09/27/20 09/28/20 23:59 23:59 23:59 Intake Total 433.75 / 433.75 Output Total 450 / 450 Balance -16.25 / -16.25 Lab / Micro Data Result Diagrams: 09/27/20 19:40 09/27/20 19:40 Labs: Laboratory Results - last 24 hr 09/27/20 19:40: WBC 5.9, RBC 4.04 L, Hgb 13.1, Hct 39.9 L, MCV 98.8 H, MCH 32.4 H, MCHC 32.8, RDW Std Deviation 46.2 H, RDW Coeff of Alejandra 12.8, Plt Count 170, MPV 9.2, Immature Gran % (Auto) 0.300, Neut % (Auto) 52.5, Lymph % (Auto) 35.6, Harper % (Auto) 5.7, Eos % (Auto) 5.2 H, Baso % (Auto) 0.7, Absolute Neuts (auto) 3.1, Absolute Lymphs (auto) 2.11, Nucleated RBC % 0 09/27/20 19:40: Sodium 141, Potassium 4.4, Chloride 106, Carbon Dioxide 30.0, Anion Gap 5, BUN 15, Creatinine 1.09, Estim Creat Clear Calc 44.60, Est GFR (MDRD) Af Amer 83, Est GFR (MDRD) Non-Af 69, BUN/Creatinine Ratio 13.8, Glucose 146 H, Calcium 9.2, Total Bilirubin 0.40, AST 14 L, ALT 9 L, Alkaline Phosphatase 55, Troponin I High Sens 9.0, Total Protein 7.0, Albumin 3.5, Globulin 3.5, Albumin/Globulin Ratio 1.0 09/27/20 20:40: Lactic Acid 1.8 09/27/20 21:12: Urine Color Yellow, Urine Clarity Clear, Urine pH 6.0, Ur Specific Belt 1.015, Urine Protein Negative, Urine Glucose (UA) Normal, Urine Ketones Negative, Urine Occult Blood Negative, Urine Nitrite Negative, Urine Bilirubin Negative, Urine Urobilinogen Normal, Ur Leukocyte Esterase Negative, Urine RBC 0 SEEN, Urine WBC 0 SEEN, Ur Squamous Epith Cells 0 SEEN, Urine Bacteria 0 SEEN, Urine Mucus 0 SEEN 09/28/20 05:44: Magnesium 1.9, Triglycerides 125, Cholesterol 167, LDL Cholesterol 100, VLDL Cholesterol 25, HDL Cholesterol 42, TSH 1.02 09/28/20 05:44: Hemoglobin A1c 7.3 H 09/28/20 06:05: POC Glucose 190 H Radiography Diagnostic Testing: Radiology Impression Brain CT 09/27/20 20:32 IMPRESSION: Chronic involutional changes of the brain. Small vessel ischemia. Low attenuation focus within the right basal ganglia may be secondary to a remote infarct. Electronically Signed: Aylin Rolle MD at 22:01 EDT Tel , Service support , Head/Neck CTA 09/28/20 00:50 IMPRESSION: No evidence of cervical or proximal intracranial vascular occlusion or focal filling stenosis. Slight increased conspicuity of right basal ganglia hypodensity, favored to represent acute or subacute stroke. MRI could further evaluate as clinically indicated. Individualized dose optimization techniques were used for this CT. at 0219 Reported and signed by: Brett Emery MD N.B. : The above Results were Read Back by Brett Emery MD to Ju Hand RN, and understanding confirmed on 09/28/2020 02:15:34 (ET). Electronically Signed: Brett Emery MD at 2:17 EDT Tel , Service support , ADDENDUM: 09/28/20 0226 IMPRESSION: No evidence of cervical or proximal intracranial vascular occlusion or focal filling stenosis. Slight increased conspicuity of right basal ganglia hypodensity, favored to represent acute or subacute stroke. MRI could further evaluate as clinically indicated. Individualized dose optimization techniques were used for this CT. at 0219 Reported and signed by: Brett Emery MD N.B. : The above Results were Read Back by Brett Emery MD to Ju Hand RN, and understanding confirmed on 09/28/2020 02:15:34 (ET). Electronically Signed: Brett Emery MD at 2:17 EDT Tel , Service support , Physical Exam Const alert Orientation / Consciousness: awake and confused HEENT normocephalic and moist oral mucous membranes Eyes PERRL, EOMs intact bilaterally and conjunctivae normal Neck no lymphadenopathy Resp normal respiratory effort and clear to auscultation bilaterally Cardio regular rate, regular rhythm and no murmurs Peripheral Pulses: pulses 2+ throughout GI normal to inspection, nondistended, normoactive bowel sounds, non-tender and non-distended Extremity normal to inspection Skin no rashes or lesions noted Lesions: no lesions Rashes: no rashes Trauma: no lacerations or abrasions Neuro CN's II-XII intact bilaterally, no focal motor deficits, no sensory deficits noted and deep tendon reflexes 2+ bilaterally Psych mental status grossly normal and affect normal Assessment & Plan Assessment/Plan (1) Ischemic stroke: PLAN: 1. Probable acute ischemic CVA-CTA of head reported low-attenuation focus within the right basal ganglia. CTA of head and neck read as subacute versus acute stroke involving the right basal ganglia. No evidence of stenosis. MRI of brain ordered. PT/OT/ST. Aspirin, statin, Plavix. Will consult SOC neurology following MRI and echo. Case management consult for discharge planning. 2. Acute encephalopathy, likely worsened by #1 with underlying dementia/Parkinson's disease-patient is pleasantly confused, no noted agitation. Continue home donepezil, carbidopa levodopa. No evidence of metabolic or infectious process. 3. CAD with history of CABG- follows with Dr. Francisco. Continue medical management. On aspirin, metoprolol. Not on statin. Stress test 05/01/2020 normal with preserved ejection fraction. 4. Hypertension-stable, continue metoprolol. 5. Hyperlipidemia-initiated on statin. 6. Anxiety/depression-on citalopram, olanzapine. Olanzapine held on admission. DVT prophylaxis-Lovenox sc This patient was seen by WU Sharma under the supervision of Dr. Huynh. Documented by User: Dr. Duran Huynh MD 09/28/20 12:21 Objective Data Lab / Micro Data Result Diagrams: 09/27/20 19:40 09/27/20 19:40 Assessment & Plan Addt'l Comments This patient was seen in conjunction with WU Sharma . I have independently interviewed and examined the patient and reviewed pertinent historical, laboratory, and other data. Please refer to WU Sharma note for details of this patient's presentation, findings, and recommendations. I have reviewed WU Sharma note and concur with documented findings. In brief, patient is a an 85-year-old gentleman with previous CVA admitted with increasing confusion falls as well as left-sided weakness and left facial droop. Admitted to monitored bed for further management Physical Examination: GENERAL: Speech is garbled HEENT: Atraumatic; EYES; Anicteric, Normal Conjunctiva NECK; supple, normal thyroid, RESPIRATORY: Diminished to auscultation EXTREMITIES: No edema, no clubbing, MUSCULOSKELETAL: no muscle waisting NEURO: Left facial droop SKIN: No Rash PSYCH; Flat affect Assessment: 1. Acute encephalopathy 2. Suspected acute CVA 3. Coronary artery disease with previous history of CABG 4. Dyslipidemia 5. Stage hypertension 6. Depression with anxiety 7. DVT prophylaxis Recommendations: 1. I have discussed the results of my overview and impressions with the patient 2. Options for management were reviewed Charges/Coding Visit Charges Inpatient E&M: 61511 Subs Hosp L3 Hospital Course Imaging Results Imaging Results: 09/28/20 05:55 Brain without Contrast [MRI] AM (NON MEDS)
[2020-09-28 12:30] LABS: Bedside Glucose 190 mg/dL (70-110)
[2020-09-28 16:16] LABS: Bedside Glucose 140 mg/dL (70-110)
[2020-09-28] MEDS: Metoprolol(XL)Succ 50 MG Tablet PO (17:03)
[2020-09-28] MEDS: Donepezil HCl 10 MG Tablet PO (20:39)
[2020-09-28 21:55] LABS: Bedside Glucose 164 mg/dL (70-110)
[2020-09-29] VITALS (13 sets, daily range): BP systolic 116–188; BP diastolic 69–95; PULSE 68–87; RESP 12–18; TEMP 36.4–37.1; O2SAT 94–99; BMI 21.6
[2020-09-29] MEDS: Haloperidol Lactate 5 MG/ML Vial 2 MG IV (02:14)
[2020-09-29] MEDS: 0.9% Saline Lock 10 ML Syringe IV ×2 (02:14→06:17)
[2020-09-29] MEDS: proMETHazine 25 MG/ML Syringe 12.5 MG IM (03:20)
[2020-09-29] MEDS: hydrALAZINE 20 MG/ML Vial 10 MG IV (06:17)
[2020-09-29] MEDS: Insulin Lispro 100 UNIT/ML INSULN.PEN SC (06:21)
[2020-09-29 06:30] LABS: Bedside Glucose 156 mg/dL (70-110)
[2020-09-29] MEDS: Clopidogrel Bisulfate 75 MG Tablet PO (08:30)
[2020-09-29] MEDS: Enoxaparin 40 MG/0.4 ML Syringe SC (08:30)
[2020-09-29] MEDS: Multivitamins,Therapeutic Tablet 1 TABLET PO (08:31)
[2020-09-29] MEDS: Citalopram 10 MG Tablet PO (08:31)
[2020-09-29] MEDS: Famotidine 20 MG Tablet PO (08:31)
[2020-09-29] MEDS: CARBIDOPA/LEVODOPA CR 50/200 Tablet PO ×3 (08:31→21:18)
[2020-09-29] MEDS: Aspirin 81 MG TAB.CHEW PO (08:32)
--- NOTE | 2020-09-29 11:15 | CASEMGMT ---
RN CM Face to Face with patient for initial transition planning/care coordination assessment. RN CM introduced self and role at [facility]. Patient sitting in chair, alert and confused, family at bedside. Family willing to participate in assessment and is able to answer all questions appropriately. Care providers, pharmacy, and demographics verified. Family wishes for patient to discharge home if able but willing to go to SNF if needed. First choice is TCU or [facility]. SW updated regarding potential SNF placement. Family state they have no further needs or concerns at this time. CM to follow for discharge planning needs that may arise. PCP: Kael Specialists: Nolan, inside sales representative Preferred Pharmacy: [facility] in [place] Insurance: [employer] Prescription Benefit: yes Living Will/HPOA: yes, [facility] LNOK: , daughter Living Arrangements: Patient lives with in a single story home with 2 steps and railing to enter the home. Patient was independent at home. Transportation: self//daughter DME/HHC: Patient has cane, walker, built in shower seat, grab bars. No previous HHC or SNF Disposition Plan: TBD HHC vs SNF pending progress with therapy. Jessy ESTES, RN, CM
--- NOTE | 2020-09-29 12:22 | CASEMGMT ---
RN AINSLEY said patient's and daughter would like patient placed. SW met with patient's and daughter. SW introduced self and role at [facility]. They decided they want patient to go to [facility] as this is close to their home. They declined a list of facilities unless [facility] cannot accept him. FLORENCE explained SW will make the referral and they will get back to me to let me know whether or not they can accept patient. SW will then let them know. SW also told them insurance will have to approve him before he can go and he will stay here until that happens. FLORENCE explained this is usually a day or two. SW also let them know that patient will have to be free of a sitter for 24 hours before he can go to the long term. FLORENCE called Monie at [facility] with referral and also faxed information. Charlotte Laughlin TERMINAL OPERATIONS SUPERVISOR SHAN
--- NOTE | 2020-09-29 12:38 | PN.HOSP_ITS ---
Documented by User: Jennifer Hagan NP, REGULATORY COMPLIANCE ENGINEER-C 09/29/20 12:50 Subjective Subjective Patient seen and examined. Confused this morning, sitter at bedside. Received x1 dose of Haldol early this morning. Patient resting comfortably. Objective Data Objective Data Vital Signs: Vital Signs Temp Pulse Resp BP Pulse Ox 97.8 F 73 16 116/92 H 96 09/29/20 08:13 09/29/20 08:13 09/29/20 08:13 09/29/20 08:13 09/29/20 08:13 Oxygen Delivery Method Room Air Weight: 133 lb 15.987 oz Body Mass Index (BMI) 21.6 Intake & Output: Intake and Output for Last 24 Hours 09/27/20 09/28/20 09/29/20 23:59 23:59 23:59 Intake Total 1670.00 / 1670.00 120 / 120 Output Total 1100 / 1200 100 / 100 Balance 570.00 / 470.00 Medical Nutrition Assessment Dietitian: Malnutrition Criteria Met Start: 09/28/20 11:33 Freq: Status: Active Protocol: Document 09/28/20 11:41 AG (Rec: 09/28/20 11:41 AG [id number]) Nutrition Malnutrition Evidence of Malnutrition Exists No Intake Problem Inadequate Oral Intake Etiology r/t swallowing difficulty, decreased appetite Signs/Symptoms as evidenced by estimated PO intake meeting <50% of estimated nutritional needs x 4 days 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 Will add magic cup w/ lunches for increased protein/calories if consumed. If PO intake at meals is poor, recommend regular diet. Lab / Micro Data Result Diagrams: 09/30/20 07:20 09/27/20 19:40 Labs: Laboratory Results - last 24 hr 09/28/20 16:01: POC Glucose 140 H 09/28/20 20:43: POC Glucose 164 H 09/29/20 06:20: POC Glucose 156 H Radiography Diagnostic Testing: Radiology Impression Brain MRI 09/28/20 05:55 IMPRESSION: Involutional changes of the brain, as described above. Subacute infarcts of the right basal ganglia. Electronically Signed: Oscar Monroe MD at 12:32 EDT Tel , Service support , ADDENDUM: 09/28/20 1247 IMPRESSION: Involutional changes of the brain, as described above. Subacute infarcts of the right basal ganglia. N.B. : Ju Palacio RN, confirmed on 09/28/2020 12:40:08 (ET) that the referring physician received the results and does not require a verbal communication. Electronically Signed: Oscar Monroe MD at 12:32 EDT Tel , Service support , Physical Exam Const Orientation / Consciousness: confused Nutritional Appearance: cachectic HEENT normocephalic and moist oral mucous membranes Eyes PERRL, EOMs intact bilaterally and conjunctivae normal Neck no lymphadenopathy Resp clear to auscultation bilaterally Auscultation: diminished lung sounds Cardio regular rate, regular rhythm and no murmurs Peripheral Pulses: pulses 2+ throughout GI normal to inspection, nondistended, normoactive bowel sounds, non-tender and non-distended Extremity normal to inspection Skin no rashes or lesions noted Lesions: no lesions Rashes: no rashes Trauma: no lacerations or abrasions Neuro CN's II-XII intact bilaterally, no focal motor deficits, no sensory deficits noted and deep tendon reflexes 2+ bilaterally Neuro Narrative: Left facial droop Psych mental status grossly normal and affect normal Assessment & Plan Assessment/Plan (1) Ischemic stroke: PLAN: 1. Subacute right basal ganglia infarcts-CTA of head reported low- attenuation focus within the right basal ganglia. CTA of head and neck read as subacute versus acute stroke involving the right basal ganglia. No evidence of stenosis. MRI of brain demonstrates subacute infarcts of the right basal gangli a. PT/OT/ST. Aspirin, statin, Plavix. Will consult SOC neurology. Echocardiogram completed, report pending. Plan for SNF pending acceptance. 2. Acute encephalopathy, likely worsened by #1 with underlying dementia/Parkinson's disease- Continue home donepezil, carbidopa levodopa. No evidence of metabolic or infectious process. Will begin scheduled Seroquel. 3. CAD with history of CABG- follows with Dr. Francisco. Continue medical management. On aspirin, metoprolol. Not on statin. Stress test 05/01/2020 normal with preserved ejection fraction. 4. Hypertension-stable, continue metoprolol. 5. Hyperlipidemia-initiated on statin. 6. Anxiety/depression-on citalopram, olanzapine. Olanzapine held on admission. DVT prophylaxis-Lovenox sc This patient was seen by WU Sharma under the supervision of Dr. Blair. Documented by User: Dr. Doris Blair MD 09/30/20 07:45 Objective Data Lab / Micro Data Result Diagrams: 09/30/20 07:20 09/27/20 19:40 Charges/Coding Addendum Addendum: This patient was seen in conjunction with Jennifer Hagan. I have independently interviewed and examined the patient and reviewed pertinent historical, laboratory, and other data. I have reviewed her note and concur with her documentation Patient was seen and examined. and daughter in the room. Patient remains confused. Sitter in the room. I went over the plan of care with the patient his and daughter. I discussed the MRI findings. Patient had an SOC consult pending. pointed out that patient recently was on Seroquel and was still having periods of confusion and agitation and was switched to Zyprexa. The Zyprexa dose was increased 3 days prior to admission. He is Physical Exam: Gen: Alert oriented x2, confused, not pale, not jaundiced CVS:HS I +II, regular, no murmurs RESP: Diminished at lung bases GI: BS present and normal, soft, nontender, no palpable organs EXT:No edema CAP INSPECTOR: Facial palsy Labs: ASSESSMENT: 1. Subacute right basal ganglia infarct 2. Acute delirium/acute encephalopathy secondary to stroke 3. Parkinson's disease with dementia 4. CAD status post CABG 5. Hypertension 6. Hyperlipidemia 7. Anxiety/depression Plan: We will switch from Seroquel to Zyprexa Continue on aspirin and Plavix with statins Await recommendations from SOC Meds reviewed -we will increase Sinemet to 4 times a day per med list from Visit Charges Inpatient E&M: 05611 Subs Hosp L2
--- NOTE | 2020-09-29 12:57 | TELEMED_ITS ---
SOC Telemed has confirmed receipt of a request for visit. This document confirms receipt of the order initiating the consult. To find the results of the consultation, please view the patient's reports for the scanned Telemed Consult.
[2020-09-29 13:20] LABS: Bedside Glucose 141 mg/dL (70-110)
--- NOTE | 2020-09-29 13:39 | CASEMGMT ---
[facility] She will start the pre-cert. Patient does need to be free of a sitter and any medications like Halodol or Seroquel given PRN for 24 hours. Charlotte TORREZ
--- NOTE | 2020-09-29 16:21 | CHAPLAIN ---
Type of Pastoral Visit _x__ Initial Visit ___ Follow-up Visit ___ On-call Visit ___ General Patient Visit ___ Spiritual Assessment ___ Family Conference ___ Bereavement ___ Rapid Response ___ Code Blue ___ Other (describe below) Pastoral Care Referral From _x__ Patient _x__ Family ___ Nurse ___ Physician ___ Business Development Agent ___ Government Employee ___ Other (describe below) Sacrament/Intervention _x__ Active listening ___ Anointing ___ Congregation ___ Bereavement ___ Communion ___ Caroline exploration ___ _x__ Life review _x__ Prayer ___ Reconciliation ___ Sacrament of Sick _x__ Supportive presence ___ Wedding ___ Other (describe below) Pastoral Comments patient is sitting in chair and at his side with hands on his; daughter in room and on phone; pt talks but has a little difficulty with a few answers while looking to for help; pt is pleasant and is appropriate; pt is member of [employer] and has been 60 years; prayer and presence welcomed today and tomorrow if possible
[2020-09-29 16:31] LABS: Bedside Glucose 161 mg/dL (70-110)
[2020-09-29] MEDS: OLANZapine 5 MG/TAB TAB.RAPDIS PO (18:50)
[2020-09-29] MEDS: Metoprolol(XL)Succ 50 MG Tablet PO (18:51)
--- NOTE | 2020-09-29 19:22 | ECHOCS_ITS ---
Reason For Study: SYNCOPE Procedure This was a 2D Doppler, Color Flow transthoracic echocardiogram. The study was technically difficult. Contrast injection was performed. not able to visualize subcostal window/ IVC due to pt positioning. Exam performed portable in patient room. Left Ventricle Normal LV size. Left ventricular systolic function is normal. The estimated ejection fraction is 65 %. Diastolic function is indeterminate. No regional wall motion abnormalities noted. Right Ventricle Normal RV size. Normal systolic function. Atria The left atrium is mildly enlarged. Normal right atrium. No doppler evidence for ASD. Bubble contrast study negative for right to left interatrial shunt. Mitral Valve There is moderate mitral annular calcification. Extension of the mitral annular calcification onto the base of the posterior mitral valve leaflet. Anterior leaflet diffuse mitral valve thickening. Mild (1+) mitral valve insufficiency. Tricuspid Valve Normal tricuspid valve. Mild to moderate (1-2+) tricuspid valve insufficiency. Right ventricular systolic pressure estimated to be 31 mmHg. Aortic Valve Trisinus/trileaflet aortic valve. Mild diffuse aortic valve thickening. Moderate focal aortic valve calcification. Pulmonic Valve The pulmonic valve is not well visualized. Great Vessels Normal sized aortic root. Pericardium/Pleural No pericardial effusion. Medication Diluted definity 6.0ml given slow IV push to enhance endocardial definition. Performed a rapid injection of agitated mix of 9 cc saline and 1cc air to assess for atrial septal defect. MMode/2D Measurements & Calculations LVIDd: 4.3 cm IVSd: 0.80 cm LVOT diam: 2.0 cm LVIDs: 2.7 cm LVPWd: 0.82 cm RVDd: 3.7 cm FS: 37.6 % LVOT area: 3.1 cm2 Ao root diam: 3.7 cm LAV(MOD-bp): 54.7 ml LVAd ap4: 22.0 cm2 LAV(MOD-bp) Indexed: 32.5 ml/m2 LVLd ap4: 6.9 cm LAV(MOD-sp2): 53.7 ml EDV(MOD-sp4): 57.3 ml LAV(MOD-sp4): 51.6 ml EDV(sp4-el): 60.1 ml LVAs ap4: 12.7 cm2 LVLs ap4: 6.0 cm ESV(MOD-sp4): 24.1 ml ESV(sp4-el): 23.0 ml EF(MOD-sp4): 57.9 % EF(sp4-el): 61.7 % LVAd ap2: 25.5 cm2 SV(MOD-sp4): 33.2 ml SV(MOD-sp2): 49.6 ml LVLd ap2: 8.0 cm EDV(MOD-sp2): 67.5 ml EDV(sp2-el): 68.8 ml LVAs ap2: 11.0 cm2 LVLs ap2: 6.0 cm ESV(MOD-sp2): 17.9 ml ESV(sp2-el): 17.0 ml EF(MOD-sp2): 73.5 % SV(sp4-el): 37.1 ml Aortic Valve Planimetry: 1.6 cm2 LA A4 area: 19.3 cm2 LA dimension(2D): 4.0 cm RA A4 area: 14.5 cm2 Doppler Measurements & Calculations MV E max randall: 105.4 cm/sec Lat Peak E' Randall: 4.6 cm/sec Med Peak E' Randall: 4.5 cm/sec MV A max randall: 151.3 cm/sec E/E' lat: 22.7 E/E' med: 23.7 MV E/A: 0.70 MV V2 max: 152.0 cm/sec Ao V2 max: 115.9 cm/sec LV V1 max: 90.6 cm/sec MV max P.2 mmHg Ao max P.4 mmHg LV V1 max P.3 mmHg MV V2 mean: 90.4 cm/sec Ao V2 mean: 80.7 cm/sec LV V1 mean P.9 mmHg MV mean P.7 mmHg Ao mean P.8 mmHg LV V1 mean: 64.8 cm/sec MV V2 VTI: 31.3 cm Ao V2 VTI: 24.9 cm LV V1 VTI: 21.0 cm MVA(VTI): 2.1 cm2 CARMEN(I,D): 2.6 cm2 CARMEN(V,D): 2.4 cm2 SV(LVOT): 64.4 ml PA V2 max: 121.0 cm/sec TR max randall: 264.3 cm/sec TR max P.1 mmHg MV P1/2t-pr_phl: 84.7 msec ECHO/Echo Complete W/ Contrast Interpretation Summary The study was technically difficult. Contrast injection was performed. Left ventricular systolic function is normal. The estimated ejection fraction is 65 %. The left atrium is mildly enlarged. There is moderate mitral annular calcification. Extension of the mitral annular calcification onto the base of the posterior mi tral valve leaflet. Anterior leaflet diffuse mitral valve thickening. Mild (1+) mitral valve insufficiency. Mild to moderate (1-2+) tricuspid valve insufficiency. Mild diffuse aortic valve thickening. Moderate focal aortic valve calcification. Right ventricular systolic pressure estimated to be 31 mmHg. Diastolic function is indeterminate. Ordering Physician: Katt Myles Referring Physician: LETTY GARDUNO Performed By: Catrachita Fu, ARIEL, RVT
--- NOTE | 2020-09-29 20:13 | NURSING ---
Pandemic Documentation 09/29/20 19:00
[2020-09-29] MEDS: Donepezil HCl 10 MG Tablet PO (21:18)
[2020-09-29] MEDS: Atorvastatin Calcium 80 MG Tablet PO (21:18)
[2020-09-29 22:26] LABS: Bedside Glucose 147 mg/dL (70-110)
[2020-09-30] VITALS (14 sets, daily range): BP systolic 96–155; BP diastolic 59–88; PULSE 57–83; RESP 12–18; TEMP 36.4–36.8; O2SAT 92–100
[2020-09-30] MEDS: CARBIDOPA/LEVODOPA CR 50/200 Tablet PO ×4 (05:11→20:35)
[2020-09-30 06:41] LABS: Bedside Glucose 138 mg/dL (70-110)
[2020-09-30 07:35] LABS: Absolute Lymphocyte Count 2.04 X10^3/uL (0.83-4.51); Absolute Neutrophil Count 4.2 X10^3/uL (2.0-7.7); Basophil# 0.06 X10^3/uL; Basophil% 0.8 % (0-1); Eosinophil# 0.32 X10^3/uL; Eosinophils% 4.4 % (0-5); Hematocrit 36.8 % (40-54); Hemoglobin 12.6 g/dL (13.0-16.5); Lymphocyte # 2.04 X10^3/ul (0.83-4.51); Lymphocyte % 27.9 % (19-41); Mean Corp Hgb Conc 34.2 g/dL (32-36); Mean Corpuscular Hgb 33.4 pg (27.0-32.0); Mean Corpuscular Volume 97.6 fL (80-94); Mean Platelet Vol. 8.7 fl (6.2-12.0); Monocyte# 0.69 X10^3/uL; Monocyte% 9.4 % (0-10); NRBC Flagged by Analyzer 0 % (0-5); Neutrophil # 4.18 X10^3/uL (2.7-7.7); Neutrophil % 57.2 % (47-70); Platelet Count 159 K/mm3 (150-450); RBC Distribution Width SD 46.1 fl (35.1-43.9); Red Blood Count 3.77 M/mm3 (4.6-6.2); White Blood Count 7.3 K/mm3 (4.4-11.0)
[2020-09-30 08:03] LABS: Anion Gap 6 (5-15); BUN 10 mg/dL (7-18); BUN/Creat Ratio 13.6 RATIO (10-20); Calcium,Total 8.6 mg/dL (8.5-10.1); Chloride 107 mmol/L (98-107); Creatinine, Serum 0.73 mg/dL (0.70-1.30); EST Glomerular Filtration Rate 108 mL/min (>60); Est Glom Filt Rate - Afr Amer 131 mL/min (>60); Estimated Creatinine Clearance 47.27 ml/min; Glucose 158 mg/dL (74-106); Potassium 3.7 mmol/L (3.5-5.1); Sodium Level 140 mmol/L (136-145)
[2020-09-30] MEDS: Citalopram 20 MG Tablet PO (10:12)
[2020-09-30] MEDS: Famotidine 20 MG Tablet PO (10:12)
[2020-09-30] MEDS: Enoxaparin 40 MG/0.4 ML Syringe SC (10:13)
[2020-09-30] MEDS: Multivitamins,Therapeutic Tablet 1 TABLET PO (10:13)
[2020-09-30] MEDS: OLANZapine 5 MG/TAB TAB.RAPDIS PO ×2 (10:13→20:35)
[2020-09-30] MEDS: Clopidogrel Bisulfate 75 MG Tablet PO (10:13)
--- NOTE | 2020-09-30 13:07 | NURSING ---
1225-This RN into room. PT/OT at bedside along with family. Observed pt in bed, fidgety. Provided items to distract pt. Educated family on distraction and use of PRN medications. 1240-Pt more calm and falling asleep. Family remains at bedside.
--- NOTE | 2020-09-30 13:23 | PN.HOSP_ITS ---
Documented by User: Jennifer Hagan NP, CLINIC ASSISTANT-C 09/30/20 13:31 Subjective Subjective Patient seen and examined. Resting comfortably in bed. Underwent echocardiogram this morning. No acute events overnight per nursing report. Awaiting approval to SNF. Objective Data Objective Data Vital Signs: Vital Signs Temp Pulse Resp BP Pulse Ox 97.9 F 63 12 108/59 L 94 09/30/20 12:45 09/30/20 12:45 09/30/20 12:45 09/30/20 12:45 09/30/20 12:45 Oxygen Delivery Method Room Air Weight: 133 lb 15.987 oz Body Mass Index (BMI) 21.6 Intake & Output: Intake and Output for Last 24 Hours 09/28/20 09/29/20 09/30/20 23:59 23:59 23:59 Intake Total 1670.00 / 1670.00 490 / 490 300 / 300 Output Total 1100 / 1200 300 / 300 350 / 350 Balance 570.00 / 470.00 190 / 190 -50 / -50 Medical Nutrition Assessment Dietitian: Malnutrition Criteria Met Start: 09/28/20 11:33 Freq: Status: Active Protocol: Document 09/28/20 11:41 AG (Rec: 09/28/20 11:41 AG [id number]) Nutrition Malnutrition Evidence of Malnutrition Exists No Intake Problem Inadequate Oral Intake Etiology r/t swallowing difficulty, decreased appetite Signs/Symptoms as evidenced by estimated PO intake meeting <50% of estimated nutritional needs x 4 days 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 Will add magic cup w/ lunches for increased protein/calories if consumed. If PO intake at meals is poor, recommend regular diet. Lab / Micro Data Result Diagrams: 09/30/20 07:20 09/30/20 07:20 Labs: Laboratory Results - last 24 hr 09/29/20 16:21: POC Glucose 161 H 09/29/20 21:17: POC Glucose 147 H 09/30/20 06:32: POC Glucose 138 H 09/30/20 07:20: WBC 7.3, RBC 3.77 L, Hgb 12.6 L, Hct 36.8 L, MCV 97.6 H, MCH 33.4 H, MCHC 34.2, RDW Std Deviation 46.1 H, RDW Coeff of Alejandra 13.0, Plt Count 159, MPV 8.7, Immature Gran % (Auto) 0.300, Neut % (Auto) 57.2, Lymph % (Auto) 27.9, Moffat % (Auto) 9.4, Eos % (Auto) 4.4, Baso % (Auto) 0.8, Absolute Neuts (auto) 4.2, Absolute Lymphs (auto) 2.04, Nucleated RBC % 0 09/30/20 07:20: Sodium 140, Potassium 3.7, Chloride 107, Carbon Dioxide 27.0, Anion Gap 6, BUN 10, Creatinine 0.73, Estim Creat Clear Calc 47.27, Est GFR (MDRD) Af Amer 131, Est GFR (MDRD) Non-Af 108, BUN/Creatinine Ratio 13.6, Glucose 158 H, Calcium 8.6 Physical Exam Const alert and no apparent distress Orientation / Consciousness: awake and confused HEENT normocephalic and moist oral mucous membranes Eyes PERRL, EOMs intact bilaterally and conjunctivae normal Neck no lymphadenopathy Resp normal respiratory effort and clear to auscultation bilaterally Cardio regular rate, regular rhythm and no murmurs Peripheral Pulses: pulses 2+ throughout GI normal to inspection, nondistended, normoactive bowel sounds, non-tender and non-distended Extremity normal to inspection Skin no rashes or lesions noted Lesions: no lesions Rashes: no rashes Trauma: no lacerations or abrasions Neuro CN's II-XII intact bilaterally, no focal motor deficits, no sensory deficits noted and deep tendon reflexes 2+ bilaterally Neuro Narrative: Left facial droop. Psych mental status grossly normal and affect normal Assessment & Plan Assessment/Plan (1) Ischemic stroke: PLAN: 1. Subacute right basal ganglia infarcts-CTA of head reported low- attenuation focus within the right basal ganglia. CTA of head and neck read as subacute versus acute stroke involving the right basal ganglia. No evidence of stenosis. MRI of brain demonstrates subacute infarcts of the right basal ganglia. SOC neurology consulted. PT/OT/ST. on Plavix, statin. Due to moderate size of stroke, neurology did not recommend dual antiplatelet therapy. Continue with Plavix only. Continue telemetry to monitor for atrial fibrillatio n. Echocardiogram completed, report pending. Plan for SNF pending acceptance. 2. Acute encephalopathy, likely worsened by #1 with underlying dementia/Parkinson's disease- Continue home donepezil, carbidopa levodopa. No evidence of metabolic or infectious process. Recently initiated on olanzapine. 3. CAD with history of CABG- follows with Dr. Francisco. Continue medical management. On aspirin, metoprolol. Not on statin. Stress test 05/01/2020 normal with preserved ejection fraction. 4. Hypertension-stable, continue metoprolol. 5. Hyperlipidemia-initiated on statin. 6. Anxiety/depression-on citalopram, olanzapine. DVT prophylaxis-Lovenox sc This patient was seen by Jennifer Hagan NP-C under the supervision of Dr. Blair. Documented by User: Dr. Doris Blair MD 09/30/20 16:28 Objective Data Lab / Micro Data Result Diagrams: 09/30/20 07:20 09/30/20 07:20 Charges/Coding Addendum Addendum: This patient was seen in conjunction with Jennifer Hagan. I have independently interviewed and examined the patient and reviewed pertinent historical, laboratory, and other data. I have reviewed her note and concur with her documentation Patient was seen and examined. He is less confused. He appears calmer than previous. No acute events overnight. Physical Exam: Gen: Alert oriented x2, confused, not pale, not jaundiced CVS:HS I +II, regular, no murmurs RESP: Diminished at lung bases GI: BS present and normal, soft, nontender, no palpable organs EXT:No edema ALL SOURCE INTELLIGENCE ANALYST: Facial palsy ASSESSMENT: 1. Subacute right basal ganglia infarct 2. Acute delirium/acute encephalopathy secondary to stroke 3. Parkinson's disease with dementia 4. CAD status post CABG 5. Hypertension 6. Hyperlipidemia 7. Anxiety/depression Plan: Continue on Plavix per SOC recommendations Continue on Zyprexa Discharge planning Visit Charges Inpatient E&M: 76492 Subs Hosp L2
[2020-09-30 13:40] LABS: Bedside Glucose 190 mg/dL (70-110)
--- NOTE | 2020-09-30 14:51 | CASEMGMT ---
SW did not complete a PHQ 9 with patient as he is confused. Charlotte Laughlin PIGGERY WORKER SHAN
--- NOTE | 2020-09-30 15:26 | CASEMGMT ---
FLORENCE called Monie at [facility] and left her a voice mail. FLORENCE asked her to call PCU if she would get the pre-cert. Green sheet is on chart. Charlotte TORREZ
--- NOTE | 2020-09-30 16:18 | CASEMGMT ---
Palliative screening tool completed for Lace/Strata 3. Patient meets criteria for palliative consult. Hospitalist updated and no consult at this time.
[2020-09-30 17:40] LABS: Bedside Glucose 170 mg/dL (70-110)
[2020-09-30] MEDS: Insulin Lispro 100 UNIT/ML INSULN.PEN SC (18:08)
[2020-09-30] MEDS: Donepezil HCl 10 MG Tablet PO (20:33)
[2020-09-30] MEDS: Atorvastatin Calcium 80 MG Tablet PO (20:34)
[2020-09-30 21:36] LABS: Bedside Glucose 144 mg/dL (70-110)
[2020-10-01] VITALS (10 sets, daily range): BP systolic 113–141; BP diastolic 61–92; PULSE 61–80; RESP 14–16; TEMP 36.5–36.9; O2SAT 93–98
--- NOTE | 2020-10-01 04:45 | NURSING ---
Vital signs late to decrease stimulation and promote rest.
[2020-10-01 06:25] LABS: Bedside Glucose 142 mg/dL (70-110)
--- NOTE | 2020-10-01 10:07 | PCM.TXEXTCAR ---
Diet 09/28/20 02:11 Diet: Cardiac - Heart Healthy Food consistency:: Mechanical (Minced/Moist) Liquid Consistency:: Poplar/Mildly Thick Type of Dietary Supplement:: magic cup w/ lunch Is pt able to select menu?: No Diet Comments: 1:1 close supervision Routine Orders/Code Status Enema Type: Fleetz Enema Frequency: Daily PRN Suppository Type: Dulcolax 10mg Suppository Frequency: Daily PRN O2 Liters per Minute: 2 O2 Frequency: PRN Keep PO Greater than or Equal to (%): 90 Code Status: DNRCC-A (no intubation) Suggestions for Active Care Change Position every (hours): 2 Times a day to sit in chair: 3 Therapies Physical Therapy: Eval and Treat Occupational Therapy: Eval and Treat Speech Therapy: Eval and Treat Problem/Diagnosis (1) Ischemic stroke: Status: Acute Allergies/Procedures Done in Hospital Allergies azithromycin Allergy (Verified 09/27/20 19:25) Swelling Procedures: 2-D Echocardiogram Type of Care/Length of Stay Estimated LOS: Convalescent Care Less Than 30 days Type of Care Needed: Skilled Rehab Potential: Fair Prognosis: Fair Additional Orders/Day of Discharge H&P will serve as current which was dated: 09/27/20 Day of Discharge: 10/01/20 Dietary and Speech Recommendations Dietitian Recommendations/Changes: continue cardiac diet, consistency per MANIPULATOR OPERATOR. Will add magic cup w/ lunches for increased protein/calories if consumed. If PO intake at meals is poor, recommend regular diet. Discharge Plan Admission Admit Date/Time: 09/28/20 13:55 Primary Reason for Your Visit: Subacute right basal ganglia infarcts Attending Provider: Doris Blair Primary Care Provider: Gunner Scruggs Chi Discharge Orders/Prescriptions Prescriptions: New clopidogrel 75 mg Tablet 75 mg PO DAILY Qty: 0 RF: 0 atorvastatin 20 mg Tablet 20 mg PO QHS Qty: 0 RF: 0 Continued vit C,T-Fe-myxgd-lutein-zeaxan [PreserVision AREDS-2] [id number] zk-koti-md-mg capsule 1 tab PO DAILY RF: 0 donepezil 10 mg Tablet 10 mg PO QHS RF: 0 carbidopa-levodopa 50-200 mg Tablet Extended Release 1 tab PO TID RF: 0 olanzapine 5 mg Tablet 5 mg PO BID RF: 0 citalopram [Celexa] 20 mg Tablet 20 mg PO DAILY RF: 0 metoprolol succinate 50 mg tablet extended release 24 hr 50 mg PO DINNER Qty: 90 RF: 3 Discontinued aspirin [Adult Low Dose Aspirin] 81 mg tablet,delayed release (DR/EC) 81 mg PO QDAY RF: 0 Other Ambulatory Orders: 30-Day Event Recorder (Routine) Location: None Selected Ordered By: Jennifer Hagan NP Referrals / Follow Up: Zia Francisco MD [STAFF PHYSICIAN] - See Referral Note (As scheduled 12/04/2020.) Naman Rhodes MD [STAFF PHYSICIAN] - Within 1 Month Gunner Scruggs Chi, MD [Primary Care Provider] - In 1 Week Disposition Disposition (needs filled in before D/C Order can be placed): Retirement Facility
--- NOTE | 2020-10-01 10:39 | DS.PCM_ITS ---
Documented by User: Jennifer Hagan NP, FLIGHT TOWER DISPATCHER-C 10/01/20 10:46 Providers Date of Admission: 09/28/20 Date of Discharge: 10/01/20 Primary Care Physician: Dr. Gunner Scruggs MD Reason For Visit: STROKE Diagnosis Discharge Diagnosis (1) Ischemic stroke: Status: Acute Code(s): I63.9 - Cerebral infarction, unspecified Medications at Discharge Home Medications vit C 250 mg-vit E 90 mg-zinc 40 mg-copper 1 sp-udoplv-rtprlq capsule 1 tab PO DAILY 05/05/17 metoprolol succinate 50 mg tablet,extended release 24 hr 50 mg PO DINNER #90 tab 09/20/17 carbidopa-levodopa 1 tab PO TID 09/28/20 citalopram [Celexa] 20 mg PO DAILY 09/28/20 donepezil 10 mg PO QHS 09/28/20 olanzapine 5 mg PO BID 09/28/20 atorvastatin 20 mg PO QHS #0 tab 10/01/20 clopidogrel 75 mg PO DAILY #0 tab 10/01/20 Hospital Course Operations None Procedures 2-D Echocardiogram Summary of Care Provided Minutes Spent on Discharge: 35 Hospital Course: Patient is an 85-year-old male admitted 09/27/2020 due to increasing confusion. 1. Subacute right basal ganglia infarcts-CTA of head reported low-attenuation focus within the right basal ganglia. CTA of head and neck read as subacute versus acute stroke involving the right basal ganglia. No evidence of stenosis. MRI of brain demonstrates subacute infarcts of the right basal ganglia. SOC neurology consulted. On Plavix, statin. Due to moderate size of stroke, neurology did not recommend dual antiplatelet therapy. Continue with Plavix only. Continue telemetry to monitor for atrial fibrillation. 30-day event monitor discharge given stroke pattern suggestive of embolism. Echocardiogram demonstrates an EF of 65%, mild mitral valve insufficiency, mild to moderate tricuspid valve insufficiency. 2. Acute encephalopathy, likely worsened by #1 with underlying dementia/ Parkinson's disease- Continue home donepezil, carbidopa levodopa. No evidence of metabolic or infectious process. Recently initiated on olanzapine. Mental status improved. 3. CAD with history of CABG- follows with Dr. Francisco. Continue medical management. On metoprolol. Aspirin discontinued. Plavix, statin added due to above. Stress test 05/01/2020 normal with preserved ejection fraction. Follow- up with cardiology as scheduled in November for routine follow-up and also to review 30-day event monitor. If evidence of A. fib, will need initiated on anticoagulation pending risk/benefit discussion. 4. Hypertension-stable, continue metoprolol. 5. Hyperlipidemia-initiated on statin. 6. Anxiety/depression-on citalopram, olanzapine. Physical Exam Const alert and no apparent distress Orientation / Consciousness: awake and confused HEENT normocephalic and moist oral mucous membranes Eyes PERRL, EOMs intact bilaterally and conjunctivae normal Neck no lymphadenopathy Resp normal respiratory effort and clear to auscultation bilaterally Cardio regular rate, regular rhythm and no murmurs Peripheral Pulses: pulses 2+ throughout GI normal to inspection, nondistended, normoactive bowel sounds, non-tender and non-distended Extremity normal to inspection Skin no rashes or lesions noted Lesions: no lesions Rashes: no rashes Trauma: no lacerations or abrasions Neuro CN's II-XII intact bilaterally, no focal motor deficits, no sensory deficits noted and deep tendon reflexes 2+ bilaterally Neuro Narrative: Left facial droop. Psych mental status grossly normal and affect normal Patient seen and examined prior to discharge. Physical assessment as noted above. Patient is stable for discharge with follow up recommendations as noted above. This patient was seen by WU Sharma under the supervision of Dr. Blair. 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 Will add magic cup w/ lunches for increased protein/calories if consumed. If PO intake at meals is poor, recommend regular diet. Weight / BMI Weight Weight: 133 lb 15.987 oz Body Mass Index (BMI) 21.6 ABG / Lab / Microbiology Data Result Diagrams: 10/01/20 14:59 10/01/20 13:53 Laboratory: Laboratory Results - last 24 hr 09/30/20 12:42: POC Glucose 190 H 09/30/20 17:28: POC Glucose 170 H 09/30/20 20:31: POC Glucose 144 H 10/01/20 06:21: POC Glucose 142 H Radiography Diagnostic Testing: Radiology Impression Echocardiogram 09/29/20 19:22 Interpretation Summary The study was technically difficult. Contrast injection was performed. Left ventricular systolic function is normal. The estimated ejection fraction is 65 %. The left atrium is mildly enlarged. There is moderate mitral annular calcification. Extension of the mitral annular calcification onto the base of the posterior mitral valve leaflet. Anterior leaflet diffuse mitral valve thickening. Mild (1+) mitral valve insufficiency. Mild to moderate (1-2+) tricuspid valve insufficiency. Mild diffuse aortic valve thickening. Moderate focal aortic valve calcification. Right ventricular systolic pressure estimated to be 31 mmHg. Diastolic function is indeterminate. Ordering Physician: Katt Myles Referring Physician: GUNNER SCRUGGS Performed By: Catrachita Fu, ARIEL, RVT Meaningful Use Info Meaningful Use Diagnoses (Choose all that apply): Ischemic CVA CVA Therapy Assessed for PT,OT and/or ST?: Yes Ischemic Stroke Antithrombotic order at d/c?: Yes Dx of Atrial fib/flutter?: No Statins at discharge?: Yes Primary Dx Acute Ischemic CVA?: Yes IV tPA ordered during stay?: No Reason IV t-PA not ordered: Medical Contraindication Discharge Plan Admission Admit Date/Time: 09/28/20 13:55 Primary Reason for Your Visit: Subacute right basal ganglia infarcts Attending Provider: Doris Blair Primary Care Provider: Gunner Scruggs Chi Discharge Orders/Prescriptions Prescriptions: New clopidogrel 75 mg Tablet 75 mg PO DAILY Qty: 0 RF: 0 atorvastatin 20 mg Tablet 20 mg PO QHS Qty: 0 RF: 0 Continued vit C,U-Lb-apnjr-lutein-zeaxan [PreserVision AREDS-2] [id number] tv-ubvo-tg-mg capsule 1 tab PO DAILY RF: 0 donepezil 10 mg Tablet 10 mg PO QHS RF: 0 carbidopa-levodopa 50-200 mg Tablet Extended Release 1 tab PO TID RF: 0 olanzapine 5 mg Tablet 5 mg PO BID RF: 0 citalopram [Celexa] 20 mg Tablet 20 mg PO DAILY RF: 0 metoprolol succinate 50 mg tablet extended release 24 hr 50 mg PO DINNER Qty: 90 RF: 3 Discontinued aspirin [Adult Low Dose Aspirin] 81 mg tablet,delayed release (DR/EC) 81 mg PO QDAY RF: 0 Other Ambulatory Orders: 30-Day Event Recorder (Routine) Location: None Selected Ordered By: Jennifer Hagan NP Referrals / Follow Up: Zia Francisco MD [STAFF PHYSICIAN] - See Referral Note (As scheduled 12/04/2020.) Naman Rhodes MD [STAFF PHYSICIAN] - Within 1 Month Gunner Scruggs Chi, MD [Primary Care Provider] - In 1 Week Disposition Disposition (needs filled in before D/C Order can be placed): Residential Facility Documented by User: Dr. Doris Blair MD 10/01/20 17:34 Providers Date of Admission: 09/28/20 Reason For Visit: STROKE Medications at Discharge Home Medications vit C 250 mg-vit E 90 mg-zinc 40 mg-copper 1 kx-aowdhj-qmqugk capsule 1 tab PO DAILY 05/05/17 metoprolol succinate 50 mg tablet,extended release 24 hr 50 mg PO DINNER #90 tab 09/20/17 carbidopa-levodopa 1 tab PO TID 09/28/20 citalopram [Celexa] 20 mg PO DAILY 09/28/20 donepezil 10 mg PO QHS 09/28/20 olanzapine 5 mg PO BID 09/28/20 atorvastatin 20 mg PO QHS #0 tab 10/01/20 clopidogrel 75 mg PO DAILY #0 tab 10/01/20 ABG / Lab / Microbiology Data Result Diagrams: 10/01/20 14:59 10/01/20 13:53 Discharge Plan Admission Admit Date/Time: 09/28/20 13:55 Primary Reason for Your Visit: Subacute right basal ganglia infarcts Attending Provider: Doris Blair Primary Care Provider: Gunner Scruggs Chi Discharge Orders/Prescriptions Prescriptions: New clopidogrel 75 mg Tablet 75 mg PO DAILY Qty: 0 RF: 0 atorvastatin 20 mg Tablet 20 mg PO QHS Qty: 0 RF: 0 Continued vit C,O-Fk-xdyag-lutein-zeaxan [PreserVision AREDS-2] [id number] oo-zfba-vt-mg capsule 1 tab PO DAILY RF: 0 donepezil 10 mg Tablet 10 mg PO QHS RF: 0 carbidopa-levodopa 50-200 mg Tablet Extended Release 1 tab PO TID RF: 0 olanzapine 5 mg Tablet 5 mg PO BID RF: 0 citalopram [Celexa] 20 mg Tablet 20 mg PO DAILY RF: 0 metoprolol succinate 50 mg tablet extended release 24 hr 50 mg PO DINNER Qty: 90 RF: 3 Discontinued aspirin [Adult Low Dose Aspirin] 81 mg tablet,delayed release (DR/EC) 81 mg PO QDAY RF: 0 Other Ambulatory Orders: 30-Day Event Recorder (Routine) Location: None Selected Ordered By: Jennifer Hagan FLIGHT TOWER DISPATCHER Referrals / Follow Up: Zia Francisco MD [STAFF PHYSICIAN] - See Referral Note (As scheduled 12/04/2020.) Naman Rhodes MD [STAFF PHYSICIAN] - Within 1 Month Gunner Scruggs Chi, MD [Primary Care Provider] - In 1 Week Disposition Disposition (needs filled in before D/C Order can be placed): Residential Facility
--- NOTE | 2020-10-01 10:52 | PHA.DC.MR ---
Pharmacy Service has performed discharge medication reconciliation for this patient. The patient's discharge medication list was reviewed for discrepancies and discrepancies were resolved. Spoke to GURPREET Cash, patient's Sinemet was increased to 4x/day yesterday but it was continued at home frequency of TID. Patient is drowsy so she may leave it at TID but she will speak with Dr. Blair. Home Medications vit C 250 mg-vit E 90 mg-zinc 40 mg-copper 1 iu-uajdow-nbqpxg capsule 1 tab PO DAILY 05/05/17 metoprolol succinate 50 mg tablet,extended release 24 hr 50 mg PO DINNER #90 tab 09/20/17 carbidopa-levodopa 1 tab PO TID 09/28/20 citalopram [Celexa] 20 mg PO DAILY 09/28/20 donepezil 10 mg PO QHS 09/28/20 olanzapine 5 mg PO BID 09/28/20 atorvastatin 20 mg PO QHS #0 tab 10/01/20 clopidogrel 75 mg PO DAILY #0 tab 10/01/20
--- NOTE | 2020-10-01 11:20 | CASEMGMT ---
FLORENCE received a call from Monie with [facility] and patient was approved. SW notified LADLE LINER and physician. SW will send orders once completed and negative COVID test is done. Charlotte TORREZ
--- NOTE | 2020-10-01 11:34 | CASEMGMT ---
Patient's daughter was in the room and SW let her know patient was approved by insurance so he will go to [facility] today. Patient's is here but she went to Dr Vaughn's office for an injection. She will be back. Charlotte TORREZ
--- NOTE | 2020-10-01 12:13 | CASEMGMT ---
Patient's daughter provided a copy of Healthcare POA papers and durable POA papers for patient. SW copied documents and put a copy in his chart and also faxed a copy to Monie at [facility]. SW asked about when patient's would be back. SW asked if a 2p nut picker would be okay. She spoke with patient's via phone and 2p should be fine. FLORENCE arranged for patient to be picked up at 2p via cot. FLORENCE notified medical office secretary and she notified RN. FLORENCE also wrote nut picker time on fax face sheet. Charlotte Laughlin FERTILIZER APPLICATOR SHAN
[2020-10-01 12:21] LABS: Bedside Glucose 127 mg/dL (70-110)
--- NOTE | 2020-10-01 12:40 | CT_ITS ---
STUDY: CT BRAIN WITHOUT CONTRAST REASON FOR EXAM: Male, 85 years old. CVA RADIATION DOSAGE (If Supplied By Facility): CTDIvol = ( 44.99 ) mGy, DLP = ( 846.73 ) mGycm TECHNIQUE: Transaxial CT imaging of the brain was performed without administration of intravenous contrast material. Individualized dose optimization techniques were used for this CT. COMPARISON: Comparison is made with prior examination 09/27/2020. FINDINGS: Normal soft tissue structures. Normal calvarium. There is moderate cerebral atrophy with widening of the extra-axial spaces and ventricular dilatation. There are areas of decreased attenuation within the white matter tracts of the supratentorial brain, consistent with microvascular disease changes. There are small punctate calcifications of the basal ganglia which are seen in the aging brain as a normal variant. Once again, there is evidence of focal area of decreased attenuation in the right basal ganglia and in keeping with an evolving region of ischemia. This has progressed slightly as compared to prior study. Normal brainstem. Normal cerebellum. There is no intracranial hemorrhage. There are no findings of an acute ischemic infarction. Atherosclerotic calcification of the vertebral arteries and cavernous portions of the internal carotid arteries bilaterally. Normal visualized paranasal sinuses. CT/Brain/Head without Contrast IMPRESSION: Chronic involutional changes of the brain. Persistent focal area of decreased attenuation in the right basal ganglion in keeping with ischemic change. This has progressed slightly as compared to prior study Electronically Signed: Olvin Willis MD at 13:18 EDT , Service support ,
--- NOTE | 2020-10-01 12:45 | CASEMGMT ---
Patient is going to receive more testing as he is lethargic today. FLORENCE called and canceled the 2p picking machine operator helper and placed him on will call. FLORENCE called Monie at [facility] and left her a voice mail letting her know that patient may still be discharged today, but not at 2p. FLORENCE will let her know when FLORENCE knows more. Charlotte Laughlin ADOLESCENT MEDICINE SPECIALIST SHAN
[2020-10-01 13:00] LABS: Allen Test Positive; Base Excess 0 mmol/L (-2 to +2); Bicarbonate 24.3 mmol/L (22-26); Blood Gas Specimen Type ART; PO2 47 mmHG (75-100); SITE R Radial; SO2 84 % (95-99); Total Carbon Dioxide 25 mmol/L; pCO2 37.1 mmHg (35-45); pH 7.42 (7.35-7.45)
--- NOTE | 2020-10-01 13:37 | PCM.PN.HOSP ---
Documented by User: Jennifer Hagan INDUSTRIAL ENGINEERING MANAGER, INDUSTRIAL ENGINEERING MANAGER-C 10/01/20 13:40 Subjective Subjective Notified by nursing of patient with persistent drowsiness/lethargy. Difficult to arouse. Stat brain CT and ABG ordered both of which are generally unremarkable. Zyprexa hold. Gentle IV fluids. Discharge canceled. Objective Data Objective Data Vital Signs: Vital Signs Temp Pulse Resp BP Pulse Ox 98.4 F 61 16 141/61 H 98 10/01/20 12:10 10/01/20 12:10 10/01/20 12:10 10/01/20 12:10 10/01/20 12:10 Oxygen Delivery Method Room Air Weight: 133 lb 15.987 oz Body Mass Index (BMI) 21.6 Intake & Output: Intake and Output for Last 24 Hours 09/29/20 09/30/20 10/01/20 23:59 23:59 23:59 Intake Total 490 / 490 420 / 420 Output Total 300 / 300 500 / 500 Balance 190 / 190 -80 / -80 Medical Nutrition Assessment Dietitian: Malnutrition Criteria Met Start: 09/28/20 11:33 Freq: Status: Active Protocol: Document 09/28/20 11:41 AG (Rec: 09/28/20 11:41 AG [id number]) Nutrition Malnutrition Evidence of Malnutrition Exists No Intake Problem Inadequate Oral Intake Etiology r/t swallowing difficulty, decreased appetite Signs/Symptoms as evidenced by estimated PO intake meeting <50% of estimated nutritional needs x 4 days 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 Will add magic cup w/ lunches for increased protein/calories if consumed. If PO intake at meals is poor, recommend regular diet. Lab / Micro Data Result Diagrams: 10/01/20 14:59 10/01/20 13:53 Labs: Laboratory Results - last 24 hr 09/30/20 12:42: POC Glucose 190 H 09/30/20 17:28: POC Glucose 170 H 09/30/20 20:31: POC Glucose 144 H 10/01/20 06:21: POC Glucose 142 H 10/01/20 12:07: POC Glucose 127 H ABG Data ABG results: ABG 10/01/20 12:56 Specimen Type ART Sample Site R Radial pH 7.42 Bicarbonate Actual 24.3 Total CO2 25 Base Excess 0 O2 Saturation 84 L ABG pCO2 37.1 ABG pO2 47 L Ishmael Test Positive Radiography Diagnostic Testing: Radiology Impression Echocardiogram 09/29/20 19:22 Interpretation Summary The study was technically difficult. Contrast injection was performed. Left ventricular systolic function is normal. The estimated ejection fraction is 65 %. The left atrium is mildly enlarged. There is moderate mitral annular calcification. Extension of the mitral annular calcification onto the base of the posterior mitral valve leaflet. Anterior leaflet diffuse mitral valve thickening. Mild (1+) mitral valve insufficiency. Mild to moderate (1-2+) tricuspid valve insufficiency. Mild diffuse aortic valve thickening. Moderate focal aortic valve calcification. Right ventricular systolic pressure estimated to be 31 mmHg. Diastolic function is indeterminate. Ordering Physician: Katt Myles Referring Physician: LETTY GARDUNO Performed By: Catrachita Fu, RDCS, RVT Brain CT 10/01/20 12:40 IMPRESSION: Chronic involutional changes of the brain. Persistent focal area of decreased attenuation in the right basal ganglion in keeping with ischemic change. This has progressed slightly as compared to prior study Electronically Signed: Olvin Willis MD at 13:18 EDT , Service support , Physical Exam Const no apparent distress Orientation / Consciousness: lethargic HEENT normocephalic and moist oral mucous membranes Eyes PERRL, EOMs intact bilaterally and conjunctivae normal Neck no lymphadenopathy Resp normal respiratory effort and clear to auscultation bilaterally Cardio regular rate, regular rhythm and no murmurs Peripheral Pulses: pulses 2+ throughout GI normal to inspection, nondistended, normoactive bowel sounds, non-tender and non-distended Extremity normal to inspection Skin no rashes or lesions noted Lesions: no lesions Rashes: no rashes Trauma: no lacerations or abrasions Neuro CN's II-XII intact bilaterally, no focal motor deficits, no sensory deficits noted and deep tendon reflexes 2+ bilaterally Psych mental status grossly normal and affect normal Assessment & Plan Assessment/Plan (1) Ischemic stroke: PLAN: 1. Subacute right basal ganglia infarcts-CTA of head reported low-attenuation focus within the right basal ganglia. CTA of head and neck read as subacute versus acute stroke involving the right basal ganglia. No evidence of stenosis. MRI of brain demonstrates subacute infarcts of the right basal ganglia. SOC neurology consulted. On Plavix, statin. Due to moderate size of stroke, neurology did not recommend dual antiplatelet therapy. Continue with Plavix only. Continue telemetry to monitor for atrial fibrillation. 30-day event monitor discharge given stroke pattern suggestive of embolism. Echocardiogram demonstrates an EF of 65%, mild mitral valve insufficiency, mild to moderate tricuspid valve insufficiency. 2. Acute encephalopathy, likely worsened by #1 with underlying dementia/Parkinson's disease- Continue home donepezil, carbidopa levodopa. No evidence of metabolic or infectious process. Hold olanzapine due to increased lethargy. ABG and repeat brain CT unremarkable. 3. CAD with history of CABG- follows with Dr. Francisco. Continue medical management. On metoprolol. Aspirin discontinued. Plavix, statin added due to above. Stress test 05/01/2020 normal with preserved ejection fraction. Follow-up with cardiology as scheduled in November for routine follow-up and also to review 30-day event monitor. If evidence of A. fib, will need initiated on anticoagulation pending risk/benefit discussion. 4. Hypertension-stable, continue metoprolol. 5. Hyperlipidemia-initiated on statin. 6. Anxiety/depression-on citalopram. Olanzapine held. DVT prophylaxis-Lovenox sc This patient was seen by [facility] under the supervision of Dr. Blair. Documented by User: Dr. Doris Blair MD 10/01/20 17:19 Objective Data Lab / Micro Data Result Diagrams: 10/01/20 14:59 10/01/20 13:53 Charges/Coding Addendum Addendum: This patient was seen in conjunction with Jennifer Hagan. I have independently interviewed and examined the patient and reviewed pertinent historical, laboratory, and other data. I have reviewed her note and concur with her documentation Patient was seen and examined. He was noted to be very lethargic. Blood glucose was 128. ABGs were unremarkable. CMP was unremarkable. CT of the brain shows slight increase in the focal area in the right basal ganglia compared to previous These were reviewed with family. We will discontinue Zyprexa, continue on gentle fluids, Physical Exam: Gen: Lethargic, patient responds to sternal rubs and localizes, GCS 11/15. He is able to carry on commands CVS:HS I +II, regular, no murmurs RESP: Diminished at lung bases GI: BS present and normal, soft, nontender, no palpable organs EXT:No edema CONTROL CHEMIST: Facial palsy ASSESSMENT: 1. Subacute right basal ganglia infarct 2. Acute delirium/acute encephalopathy secondary to stroke 3. Parkinson's disease with dementia 4. CAD status post CABG 5. Hypertension 6. Hyperlipidemia 7. Anxiety/depression Plan: Discontinue Zyprexa Neurochecks x2, patient will reassess later Continue on Plavix per SOC recommendations Visit Charges Inpatient E&M: 04152 Subs Hosp L3
--- NOTE | 2020-10-01 13:51 | CASEMGMT ---
Patient's discharged has been canceled for today. FLORENCE called Monie at [facility] and let her know the discharge was canceled. FLORENCE asked her if the pre-cert will still be good tomorrow. She will check and get back to FLORENCE. Charlotte Laughlin PROGRAM MANUFACTURING LEADER SHAN
[2020-10-01 14:24] LABS: Anion Gap 10 (5-15); BUN 15 mg/dL (7-18); BUN/Creat Ratio 18.1 RATIO (10-20); Calcium,Total 8.9 mg/dL (8.5-10.1); Chloride 106 mmol/L (98-107); Creatinine, Serum 0.83 mg/dL (0.70-1.30); EST Glomerular Filtration Rate 94 mL/min (>60); Est Glom Filt Rate - Afr Amer 113 mL/min (>60); Estimated Creatinine Clearance 56.96 ml/min; Glucose 128 mg/dL (74-106); Magnesium 2.2 mg/dL (1.6-2.6); Potassium 3.8 mmol/L (3.5-5.1); Sodium Level 140 mmol/L (136-145)
[2020-10-01] MEDS: 0.9% Normal Saline 1,000 ML 75 ML IV (14:31)
[2020-10-01] MEDS: CARBIDOPA/LEVODOPA CR 50/200 Tablet PO ×2 (14:37→19:57)
[2020-10-01 15:14] LABS: Absolute Neutrophil Count 4.6 X10^3/uL (2.0-7.7); Basophil# 0.04 X10^3/uL; Basophil% 0.6 % (0-1); Eosinophil# 0.17 X10^3/uL; Eosinophils% 2.5 % (0-5); Hematocrit 40.4 % (40-54); Hemoglobin 13.5 g/dL (13.0-16.5); Lymphocyte % 20.7 % (19-41); Mean Corp Hgb Conc 33.4 g/dL (32-36); Mean Corpuscular Hgb 33.1 pg (27.0-32.0); Mean Platelet Vol. 8.9 fl (6.2-12.0); Monocyte# 0.53 X10^3/uL; Monocyte% 7.9 % (0-10); NRBC Flagged by Analyzer 0 % (0-5); Neutrophil # 4.59 X10^3/uL (2.7-7.7); Platelet Count 185 K/mm3 (150-450); RBC Distribution Width CV 13.1 % (11.6-14.6); RBC Distribution Width SD 46.6 fl (35.1-43.9); Red Blood Count 4.08 M/mm3 (4.6-6.2); White Blood Count 6.8 K/mm3 (4.4-11.0)
--- NOTE | 2020-10-01 15:34 | CASEMGMT ---
[facility]ENCE [facility] and she said the pre-cert is still good tomorrow. Charlotte Laughlin REPORT MANAGER ELECTROPHYSIOLOGY SCIENTIST
[2020-10-01 16:35] LABS: Bedside Glucose 138 mg/dL (70-110)
--- NOTE | 2020-10-01 18:34 | NURSING ---
Charting by Sue SÁNCHEZ reviewed by this RN
[2020-10-01] MEDS: Donepezil HCl 10 MG Tablet PO (19:57)
[2020-10-01] MEDS: Atorvastatin Calcium 20 MG Tablet PO (19:57)
[2020-10-01 23:36] LABS: Bedside Glucose 120 mg/dL (70-110)
[2020-10-02] MEDS: 0.9% Normal Saline 1,000 ML 100 ML IV (01:43)
[2020-10-02 03:00] VITALS: PULSE 74
[2020-10-02 04:00] VITALS: BP 144/76; PULSE 74; RESP 14; TEMP 36.2; O2SAT 97
[2020-10-02 06:11] LABS: Bedside Glucose 103 mg/dL (70-110)
[2020-10-02 07:00] VITALS: PULSE 76
--- NOTE | 2020-10-02 09:26 | CASEMGMT ---
Patient is ready for discharge to [facility] today. FLORENCE called patient's to see if she wanted to see patient at [facility] or here at [facility]. She wanted to see him at [facility] to tell him he is going to [facility]. FLORENCE will arrange transport once patient's arrives. Charlotte TORREZ
[2020-10-02] MEDS: Clopidogrel Bisulfate 75 MG Tablet PO (10:11)
[2020-10-02] MEDS: Citalopram 20 MG Tablet PO (10:11)
[2020-10-02] MEDS: CARBIDOPA/LEVODOPA CR 50/200 Tablet PO (10:11)
[2020-10-02] MEDS: Multivitamins,Therapeutic Tablet 1 TABLET PO (10:12)
[2020-10-02] MEDS: Enoxaparin 40 MG/0.4 ML Syringe SC (10:12)
[2020-10-02 10:24] VITALS: BP 144/76; PULSE 74; RESP 14; TEMP 36.2; O2SAT 97
--- NOTE | 2020-10-02 10:53 | CASEMGMT ---
Patient's and daughter arrived at [facility]. SW arranged for patient to get picked up at noon. SW notified RN, glass cleaner, patient's and daughter, and left a message for Monie at [facility]. Plan: d/c to [facility] under skilled level of care on a convalescent stay. [facility] transported patient via cot. Charlotte Laughlin ASSISTANT COUNTY ENGINEERJulian TORREZ
[2020-10-02 11:56] LABS: Bedside Glucose 86 mg/dL (70-110)
--- NOTE | 2020-10-02 11:56 | CASEMGMT ---
FLORENCE did get revised orders for patient. FLORENCE faxed orders to [facility]. FLORENCE called Monie and let her know that FLORENCE is faxing new orders. She thanked FLORENCE for the update. Plan: d/c to [facility] under skilled level of care on a convalescent stay. [facility] transported via cot. Charlotte TORREZ
--- NOTE | 2020-10-02 11:56 | NURSING ---
Report called to nurse Pedroza for pt d/c to [facility].
== END 2020-10-02 11:59 | disposition skilled nursing facility (03) | DRG 65 ==
LOC: ED 23:48 → PCU 09-28 00:29
PROVIDERS: Internal Medicine; Nurse Practitioner Family; Admitting Provider Internal Medicine; Emergency Provider Emergency Medicine; PCP Family Medicine Geriatric Medicine; Visit Provider Internal Medicine
DX: I63.9 Cerebral infarction, unspecified (principal); G93.49 Other encephalopathy; I47.2 Ventricular tachycardia; G81.94 Hemiplegia, unspecified affecting left nondominant side; R47.1 Dysarthria and anarthria; R47.89 Other speech disturbances; R29.810 Facial weakness; R29.706 NIHSS score 6; G20 Parkinson's disease; F02.80 Dementia in other diseases classified elsewhere, unspecified severity, without behavioral disturbance, psychotic disturbance, mood disturbance, and anxiety; I25.10 Atherosclerotic heart disease of native coronary artery without angina pectoris; R32 Unspecified urinary incontinence; G47.37 Central sleep apnea in conditions classified elsewhere; E11.9 Type 2 diabetes mellitus without complications; I10 Essential (primary) hypertension; E78.5 Hyperlipidemia, unspecified; F32.9 Major depressive disorder, single episode, unspecified; F41.9 Anxiety disorder, unspecified; Z79.02 Long term (current) use of antithrombotics/antiplatelets; Z79.82 Long term (current) use of aspirin; Z79.899 Other long term (current) drug therapy; Z87.891 Personal history of nicotine dependence; Z95.1 Presence of aortocoronary bypass graft; Z95.5 Presence of coronary angioplasty implant and graft
CPT/HCPCS: 36415; 36600; 70450; 70496; 70498; 70551; 80048; 80053; 80061; 81001; 82803; 82962; 83036; 83605; 83735; 84443; 84484; 85025; 87426; 92507; 92526; 92610; 93005; 93306; 94762; 97162; 97166; 97530; 97535; 99285; J7030; J7120; Q9957; Q9967; A4216; C8929; J3490

== ENCOUNTER → 2021-01-22 11:16 | Outpatient (CLI) | payer MEDICARE, SELFPAY ==
[2021-01-22 15:35] LABS: Absolute Neutrophil Count 4.3 X10^3/uL (2.0-7.7); Basophil# 0.01 X10^3/uL; Basophil% 0.1 % (0-1); Eosinophil# 0.37 X10^3/uL; Eosinophils% 5.1 % (0-5); Hematocrit 39.5 % (40-54); Hemoglobin 12.8 g/dL (13.0-16.5); Lymphocyte % 27.7 % (19-41); Mean Corp Hgb Conc 32.4 g/dL (32-36); Mean Corpuscular Volume 101.8 fL (80-94); Mean Platelet Vol. 9.5 fl (6.2-12.0); Monocyte# 0.53 X10^3/uL; Monocyte% 7.3 % (0-10); NRBC Flagged by Analyzer 0 % (0-5); Neutrophil # 4.28 X10^3/uL (2.7-7.7); Neutrophil % 59.4 % (47-70); Platelet Count 169 K/mm3 (150-450); RBC Distribution Width CV 13.6 % (11.6-14.6); RBC Distribution Width SD 51.7 fl (35.1-43.9); Red Blood Count 3.88 M/mm3 (4.6-6.2); White Blood Count 7.2 K/mm3 (4.4-11.0)
[2021-01-22 15:51] LABS: Vitamin D,25 Hydroxy 22.6 ng/mL
[2021-01-22 16:11] LABS: ALB/GLOB Ratio 0.9 RATIO (0.9-2.4); AST(SGOT) 14 U/L (15-37); Alanine Aminotransfer ALT/SGPT 11 U/L (16-61); Albumin, Serum 3.5 g/dL (3.2-5.0); Alkaline Phosphatase 62 U/L (45-117); Anion Gap 7 (5-15); BUN 19 mg/dL (7-18); BUN/Creat Ratio 16.5 RATIO (10-20); Calcium,Total 9.6 mg/dL (8.5-10.1); Chloride 104 mmol/L (98-107); Cholesterol 135 mg/dL (200); Creatinine, Serum 1.15 mg/dL (0.70-1.30); EST Glomerular Filtration Rate 64 mL/min (>60); Est Glom Filt Rate - Afr Amer 78 mL/min (>60); Globulin 3.8 g/dL (2.2-4.2); Glucose 289 mg/dL (74-106); High Density Lipoprotein 48 mg/dL; Potassium 4.3 mmol/L (3.5-5.1); Protein, Total 7.3 g/dL (6.4-8.2); Sodium Level 141 mmol/L (136-145); Thyroid Stim Hormone (TSH) 0.92 uIU/mL (0.358-3.74); Triglycerides 120 mg/dL; Very Low Density Lipoprotein 24 mg/dL (5-40)
== END ==
PROVIDERS: PCP Family Medicine Geriatric Medicine; Visit Provider Family Medicine Geriatric Medicine
DX: E11.9 Type 2 diabetes mellitus without complications (principal); I10 Essential (primary) hypertension; E78.5 Hyperlipidemia, unspecified; E55.9 Vitamin D deficiency, unspecified
CPT/HCPCS: 36415; 80053; 80061; 82306; 84443; 85025